=== PATIENT | female | born 1980 | race Caucasian/White ===

== ENCOUNTER → 2023-10-20 15:12 | Outpatient (CLI) | payer OTHER, SELFPAY ==
--- NOTE | 2023-10-20 15:15 | DI.MG.S_ITS ---
BILATERAL DIGITAL SCREENING MAMMOGRAM 3D/2D WITH CAD: 10/20/2023 CLINICAL: Routine screening. Family history of breast cancer. No prior exams were available for comparison. There are scattered areas of fibroglandular density in both breasts (category b / 25%-50% glandular tissue). Current study was also evaluated with a Computer Aided Detection (CAD) system. No significant masses, calcifications, or other findings are seen in either breast. IMPRESSION: NEGATIVE There is no mammographic evidence of malignancy. A 1 year screening mammogram is recommended. Based on the Tyrer Cuzick model (a risk assessment model) the patient's lifetime risk is 10.4% and her 10 year risk is 1.5%. According to the ACR, ACS, and NCCN guidelines, an annual breast MRI exam along with mammogram is recommended if the patient's lifetime risk is 20% or greater. This exam was interpreted at Station ID: [id number]. NOTE: For mammograms, a report in lay terms will be sent to the patient. Approximately 15% of breast malignancies will not be visualized mammographically. In the management of a palpable breast mass, a negative mammogram must not discourage biopsy of a clinically suspicious lesion. Electronically Signed By: Moses [email or web address]:10/21/2023 07:10:34 letter sent: Normal Exam ACR BI-RADS Category 1: Negative [id number]
== END ==
PROVIDERS: PCP Student in an Organized Health Care Education/Training Program; Referring Provider Student in an Organized Health Care Education/Training Program; Visit Provider Student in an Organized Health Care Education/Training Program
DX: Z12.31 Encounter for screening mammogram for malignant neoplasm of breast (principal); Z85.3 Personal history of malignant neoplasm of breast; R92.323 Mammographic fibroglandular density, bilateral breasts
CPT/HCPCS: 77063; 77067

== ENCOUNTER 2024-09-23 09:54 | Emergency (ER) | payer OTHER, SELFPAY ==
[2024-09-23 10:11] VITALS: BP 126/83; PULSE 65; RESP 18; TEMP 36.2; O2SAT 100
--- NOTE | 2024-09-23 10:16 | DI.RAD.S_ITS ---
PROCEDURE: XR FOOT LT MIN 3V INDICATIONS: foot pain. TECHNIQUE: 3 views of the foot were acquired. COMPARISON: None. FINDINGS: Bones: No fractures or dislocations. No suspicious bony lesions. Plantar calcaneal enthesophyte. Soft tissues: No tibiotalar joint effusion. Achilles tendon appears normal. IMPRESSION: No acute bony abnormality. Dictated by: Ravi Batista M.D. on 09/23/2024 at 10:28 Approved by: Ravi Batista M.D. on 09/23/2024 at 10:29
--- NOTE | 2024-09-23 11:07 | ED_ITS ---
HPI - Extremity Problem <Halima Alanis PA-C - Last Filed: 09/23/24 14:10> General Chief complaint: Extremity Problem,Nontraumatic Stated complaint: Left foot pain. Time Seen by Provider: 09/23/24 11:07 Source: patient Mode of arrival: Family Vehicle History of Present Illness HPI Narrative: 44-year-old female presents with left lateral dorsal foot pain. She states she was trying to insert her foot in her [employer] bicycle shoe, she felt immediate pain, she denies any twisting, she was doing this while in a seated position and not actually clipped into the bike. She states she has pain with weightbear. Her concern is that she has had a fracture on the contralateral side some years ago and reports it was missed on the initial x-ray. She is denying any numbness or tingling, no treatment tried except ice. She no longer gets menstrual cycles as she has had an endometrial ablation, she is allergic to steroids and NSAIDs. All other systems are reviewed and are negative. Related Data Home Medications Medication Instructions Recorded Confirmed vitamin-ferrous fumarate 1 cap PO QDAY ##0 08/19/17 65 mg iron-folic acid 1 mg capsule (Mynatal) ascorbic acid (vitamin C) 500 mg 500 mg PO QDAY ##0 08/20/17 tablet Previous Rx's Medication Instructions Recorded oxycodone-acetaminophen 5 mg-325 1 - 2 tab PO Q6HP PRN ##20 08/21/17 mg tablet Allergies Allergy/AdvReac Type Severity Reaction Status Date / Time Corticosteroids AdvReac Verified 09/23/24 10:16 (Glucocorticoids) NSAIDS (Non-Steroidal AdvReac Verified 09/23/24 10:16 Anti-Inflamma Review of Systems <Halima Alanis PA-C - Last Filed: 09/23/24 14:10> Review of Systems Narrative: All other systems reviewed and are negative. Patient History <Halima Alanis PA-C - Last Filed: 09/23/24 14:10> Social History Smoking Status: Former smoker Smoking Status: Former smoker tobacco type: cigarettes Exam <Halima Alanis PA-C - Last Filed: 09/23/24 14:10> Initial Vital Signs Initial Vital Signs: Vital Signs Temperature 97.1 F L 09/23/24 10:11 Pulse Rate 65 09/23/24 10:11 Respiratory Rate 18 09/23/24 10:11 Blood Pressure 126/83 09/23/24 10:11 Pulse Oximetry 100 09/23/24 10:11 Oxygen Delivery Method Room Air 09/23/24 10:11 Vital signs reviewed and are normal. Const General: cooperative, healthy appearing, comfortable and well developed Other: Pleasantly conversing, ambulates with full weightbear but a little hesitant at times on the left foot. No guarding. Extrem Left lower extremity: normal to inspection, full ROM, normal capillary refill, ankle Details: normal to inspection and normal ROM; no tenderness, no swelling and edema and foot Details: normal capillary refill, normal to inspection and tenderness (Left dorsal lateral foot over the tarsal bones mainly cuboid and adjacent cuneiform, mild joint line tenderness along the tarsometatarsal joint overlying the 4th and 5th. No guarding, no discoloration no breaks in the skin.); no cyanosis, no edema and joint enlargement noted Other: She demonstrates full active range of motion but pain is reproduced with foot inversion. No issues with passive ROM against resistance of the distal phalanges. Abduction adduction are also intact. Toe walk intact. No issues identified with the heel or Achilles, no issues identified with the lower leg. <DO Josemanuel Brown Last Filed: 09/23/24 18:39> Initial Vital Signs Initial Vital Signs: Vital Signs Temperature 97.1 F L 09/23/24 10:11 Pulse Rate 65 09/23/24 10:11 Respiratory Rate 18 09/23/24 10:11 Blood Pressure 126/83 09/23/24 10:11 Pulse Oximetry 100 09/23/24 10:11 Oxygen Delivery Method Room Air 09/23/24 10:11 Course <Halima Alanis PA-C - Last Filed: 09/23/24 14:10> Orders Ordered: ED Orders 09/23/24 10:16 XR foot LT min 3V Stat Vital Signs Vital signs: Vital Signs - 8 hr 09/23/24 12:20 Pulse Rate 69 Respiratory Rate 16 Blood Pressure 108/72 Pulse Oximetry 100 Oxygen Delivery Method Room Air <DO Josemanuel Brown Last Filed: 09/23/24 18:39> Orders Ordered: ED Orders 09/23/24 10:16 XR foot LT min 3V Stat Vital Signs Vital signs: Vital Signs - 8 hr 09/23/24 12:20 Pulse Rate 69 Respiratory Rate 16 Blood Pressure 108/72 Pulse Oximetry 100 Oxygen Delivery Method Room Air MDM - Extremity (Nontraumatic) <Halima Alanis PA-C - Last Filed: 09/23/24 14:10> Imaging Data Extremity x-ray #1: My Impression: Deferred to radiologist's interpretation below. Radiologist's Impression: PROCEDURE: XR FOOT LT MIN 3V INDICATIONS: foot pain. TECHNIQUE: 3 views of the foot were acquired. COMPARISON: None. FINDINGS: Bones: No fractures or dislocations. No suspicious bony lesions. Plantar calcaneal enthesophyte. Soft tissues: No tibiotalar joint effusion. Achilles tendon appears normal. IMPRESSION: No acute bony abnormality. Dictated by: Ravi Batista M.D. on 09/23/2024 at 10:28 Approved by: Ravi Batista M.D. on 09/23/2024 at 10:29 [facility] Narrative Medical decision making narrative: Her x-rays are negative for fracture, we did discuss possibility of an occult fracture and of course reimaging in a couple of weeks which she can do with her PCP. She is fitted with a walking boot, she feels comfortable, declined crutches, discussed ice and elevation and avoiding re-injury. Keep activity light, seek medical attention if anything changes or worsens. Acetaminophen as needed for pain, we did discuss the use of a contrast bath as well 30-40 seconds in a cold plunge and alternating with a hot plunge. Red flag warning signs reviewed in detail. She states she will follow up with her PCP and declined orthopedic referral. Discharge Plan Departure Patient Disposition: Home Clinical Impression: Acute foot pain Qualifiers: Laterality: left Qualified Code(s): M79.672 - Pain in left foot Instructions: DI for Foot Pain Activity Restrictions/Additional Instructions: I recommend wearing the boot for the next couple of weeks until you follow up with your PCP. I recommend a contrast bath you take a bowl of water fill it with some ice and immerse the entire foot and ankle for about 30-40 seconds remove and then place the foot and a hot plunge repeat this several times for a period of about 10 minutes or so. Try to elevate as much as possible, avoid re- injury or new injury, seek medical attention if you have any worsening pain or any new worrisome symptoms. This could be a ligamentous strain versus tendinitis versus a contusion from the bike shoe at this point your x-rays are negative, sometimes these are repeated in a couple of weeks to see if there is any interval change. Acetaminophen as needed for pain. Prescriptions: No Action vit-iron fum-folic ac [Mynatal] 1 EACH capsule 1 cap PO QDAY Qty: 0 ascorbic acid (vitamin C) 500 MG tablet 500 mg PO QDAY Qty: 0 oxycodone-acetaminophen 5 MG/325 MG tablet 1 - 2 tab PO Q6HP PRNQty: 20 0RF Referrals: ProviderSheldon [Primary Care Provider] - Stand Alone Forms: Patient Portal/API/Survey ED Sign-out <Radha Islas DO - Last Filed: 09/23/24 18:39> Cosign ED Attending Cosignature Attestation: I was immediately available in the department for consultation.
--- NOTE | 2024-09-23 12:17 | PC.NURSE ---
Pt reports sticking foot in [employer] shoe and hurting her left ankle. Pt able to pinpoint pain at left side of foot. No swelling noted. Pulses in tact. Skin intact.
[2024-09-23 12:20] VITALS: BP 108/72; PULSE 69; RESP 16; O2SAT 100
== END 2024-09-23 12:21 | disposition home or self-care (01) ==
PROVIDERS: Emergency Provider Physician Assistant Medical; Family Provider Student in an Organized Health Care Education/Training Program
DX: M79.672 Pain in left foot (principal); Z87.891 Personal history of nicotine dependence
CPT/HCPCS: 73630; 99281; 99283

== ENCOUNTER → 2024-10-28 16:56 | Outpatient (CLI) | payer OTHER, SELFPAY ==
--- NOTE | 2024-10-28 16:57 | DI.MG.S_ITS ---
MM screening mammo BI: 10/28/2024. BI-RADS: 1 CLINICAL: 44-year old female for bilateral screening mammogram. Tyrer-Cuzick lifetime risk of 10.3%. No personal or first-degree family history of breast cancer. Current reported family history of breast cancer: paternal grandmother. PRIOR EXAMS 10/20/2023. MAMMOGRAPHY TECHNIQUE: 2D and 3D (tomosynthesis) digital mammographic views obtained, with additional images as needed for full coverage. Current study was also evaluated with a Computer Aided Detection (CAD) system. DENSITY A. The breasts are almost entirely fatty. MAMMOGRAPHY FINDINGS Bilateral: No suspicious mass, asymmetry, microcalcification, or other abnormality seen. IMPRESSION: * No evidence of malignancy. RECOMMENDATIONS Bilateral * Annual screening mammography. OVERALL ASSESSMENT CATEGORY BI-RADS-1: Negative. The [employer] recommends annual screening mammography beginning at age 40 for women with average risk of breast cancer. ELECTRONICALLY SIGNED: Bianka Blankenship M.D. on 10/31/2024 at 11:36:57 AM PT Interpreting Station ID: [id number]
== END ==
PROVIDERS: Family Provider Student in an Organized Health Care Education/Training Program; Referring Provider Family Medicine; Visit Provider Family Medicine
DX: Z12.31 Encounter for screening mammogram for malignant neoplasm of breast (principal); Z80.3 Family history of malignant neoplasm of breast; R92.313 Mammographic fatty tissue density, bilateral breasts
CPT/HCPCS: 77063; 77067

== ENCOUNTER 2024-11-28 13:45 | Outpatient (RCR) | payer OTHER, SELFPAY ==
--- NOTE | 2024-09-05 18:07 | PT.OIE ---
Current Diagnoses Unspecified urinary incontinence (09/05/24) Visit Care Team Role Provider Type Kristen Guerrero MD Attending Provider Non-Staff Family Provider Primary Care Provider Referring Provider Specialty: Medical Address: [address] [place] [address], [facility] Email: Physical Therapy Initial Evaluation PT-OP-A Visit Information Start: 08/05/24 17:15 Freq: Status: Active Protocol: Document 09/05/24 14:38 LRN (Rec: 09/05/24 18:06 LRN [id number]) Out-Patient Physical Therapy Visit Information Visit Information Visit Type Initial Evaluation Visit Start Time 14:38 Visit Stop Time 15:30 Visit Number 1 Evaluation Information Evaluation Date 09/05/24 Precautions Precautions G2,P3, T2 ( with twins, vaginal births, one still born, the other later). She reports her one living daughter was born via . Gastroc bypass - 09/24/2023, Endometrial ablasion - 06/2022, L thyroidectomy - 08/20/2017, Uterine polypectomies - 2014 PT-OP-B Current Condition Start: 08/05/24 17:15 Freq: Status: Active Protocol: Document 09/05/24 14:38 LRN (Rec: 09/05/24 18:06 LRN [id number]) Current Condition History of Current Condition Onset Date 2018 Current Complaints Urinary leakage with fear of prolapse. History of Current Condition 2019 had w/DA of 11 lbs. Prolapse bladder started for the first time in 2022. Was also overweight and had gastroc bypass in 09/2023. States 3 months later in December , she had a severe prolapse and she manually would push it back in and everything would be fine. She admits at that time she had constipation. States prolapse has happened 2 -3 times previously, but last December was severe because she could feel more falling out/ coming down, stopping at the opening of vaginal canal. States she has been doing Kegels. With an urge she has a couple of minutes to urinate before she is not able to hold her urine. Sometimes leaks with cough or sneeze, crossing legs helps not to leak. Home ex's: [place] bike , free wgts & yoga mats, and walks/hikes. Leaks with lifting something over 20-30# (DA is 6 yo - 50#). Prior Treatments and Tests None. Treatment Goals Patient/Caregiver Goals Pt goals: -To resolve urinary incontinence with stepping up onto a curve, one leg slipping out to side, and running, yoga changing a leg position (leaks underwear, not outerwear). -Not leak with cough or sneeze . 1 out of 8 times. -Have a HEP to be able to resolve the problem. Personal Factors Other Personal Factors That May Effect LBP rated 3-4/10. Inguinal Therapy/Recovery pain occasionally, rand sides at different times. G2,P3, T2 ( with twins, vaginal births, one still born , the other later) . She reports her one living daughter was born via C- section. 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 PT-OP-C Subjective Start: 08/05/24 17:15 Freq: Status: Active Protocol: Document 09/05/24 14:38 LRN (Rec: 09/05/24 18:06 LRN [id number]) Patient Questionnaires Pelvic Pain and Urgency/Frequency Patient Symptom Scale Pelvic Pain Score 9 PT-OP-I Pelvic Floor Start: 08/05/24 17:15 Freq: Status: Active Protocol: Document 09/05/24 14:38 LRN (Rec: 09/05/24 18:06 LRN [id number]) Pelvic Floor Assessment Urine Urinary Symptoms Falling Out Feeling/Heavy Leakage Cause Cough,Exercise,Lifting,Sneeze, Urge Other Leakage Causes Urinary leakage is from small to large. Leak with lift of over 20-30# or more (leaks w/lift of 50# DA) Sometimes leaks with cough. Leaks with running. Leaks Per Day 3x/week leakage Nocturia Sometimes 1x/night Pads Used In 24 Hours 0 Bowel Other Bowel Symptoms No constipation for last 3 months due to use of probiotics, and resolution of bypass surgery. Bowel Movement Frequency 1x/day [place] Stool Chart Comments Type 4-5 Prolapse Cystocele Grade 3 Prolapse Comments In supine: Bladder has dropped into 1/2 of vaginal canal, uterus not palpated. Perineal Descent Resting Absent Bearing Absent Contraction Ability Voluntary Contraction Weak Manual Muscle Testing Left 2 Manual Muscle Testing Right 2 Manual Muscle Testing Anterior 1 Manual Muscle Testing Posterior 2 Muscle Endurance (Seconds) 8 Number of Quick Contractions In 10 1 Seconds Comments Pelvic Floor Comments Dry & Light pink PF tissues. PT-OP-J Posture/Palpation/Skin Start: 08/05/24 17:15 Freq: Status: Active Protocol: Document 09/05/24 14:38 LRN (Rec: 09/05/24 18:06 LRN [id number]) Posture Evaluation Position Standing Pelvis Posture Anteriorly Tilted Ankle/Foot Posture (R) Calcaneal Inversion Comments Posture Comments Flattened upper thoracic spine . Sacrum L rotated (fwd at R at Sacral sulcus and YESENIA). PT-OP-K Range of Motion Start: 08/05/24 17:15 Freq: Status: Active Protocol: Document 09/05/24 14:38 LRN (Rec: 09/05/24 18:06 LRN [id number]) Lumbar Spine Range of Motion Lumbar Spine Active Degrees Testing Position Standing Flexion 120 Extension 25 Rotation Left 25 Rotation Right 30 Lateral Flexion Left 20 Lateral Flexion Right 18 Hip Goniometric Range of Motion Hip Right Passive Testing Position Supine Internal Rotation 30 External Rotation 85 Left Passive Testing Position Supine Internal Rotation 28 External Rotation 85 PT-OP-M Strength Start: 08/05/24 17:15 Freq: Status: Active Protocol: Document 09/05/24 14:38 LRN (Rec: 09/05/24 18:06 LRN [id number]) Trunk Strength Trunk Manual Muscle Testing Core Stabilization Loss of rotational stability with MMT of LE's. Hip Strength Hip Manual Muscle Testing Right Flexion (L2) 3+ Fair+ Extension (S1) 4+ Good+ Comments Strength is 5/5 except as indicated above. Left Flexion (L2) 3+ Fair+ Extension (S1) 4 Good External Rotation 4 Good Comments Strength is 5/5 except as indicated above. PT-OP-Q Treatments Start: 08/05/24 17:15 Freq: Status: Active Protocol: Document 09/05/24 14:38 LRN (Rec: 09/05/24 18:06 LRN [id number]) Self-Care/Home Management Treatment Education Other Education Discussed results of evaluation, goals, treatment, and plan of care (POC) with pt , discussed attendance/cx/dns policy; pt agreeable to evaluation, goals, treatment, attendance/cx/dns policy and POC. Discussed and educated pt in specifics for completion of in use of Bladder Diary and I/S in tracking for 1 week. Activities Self-Care/Home Management Activities Issued & reviewed HEP: Tommy ex's and discussed exercise of Quick Flicks, Long Holds and Aggravators (sneeze, lifting 50#, cough). PT-OP-T Assessment and Plan Start: 08/05/24 17:15 Freq: Status: Active Protocol: Document 09/05/24 14:38 LRN (Rec: 09/05/24 18:06 LRN [id number]) Physical Therapy Assessment Rehab Potential Rehabilitation Potential Good Evaluation Complexity Number of Personal Factors/Comorbidities 3 or More Number of Body Systems Impaired 4 or More Clinical Presentation at Evaluation Evolving Impairments Impairments Activity Tolerance,Pain, Posture,ROM,Soft Tissue Mobility,Strength,Transfers Goals Three Impairment Urinary leakage due to decr'd hip mobility (IR) & PF strength/endurance Short Term Goal (STG) Pt will be educated and show ability to remain continent in presence of a strong urge. STG Duration 10/20/24 Refrigeration Brazer/Solderer Goal (LTG) Pt will be urinary continent when stepping up onto a curve, and performing yoga (changing a leg position), or if a leg slips out to the side, and running.. LTG Duration 12/02/24 Two Impairment Stress urinary incontinence with cough/sneeze. Short Term Goal (STG) Pt will be able to demonstrate postural and performance modification for coughing and postural modification with sneezing to eliminate urinary leakage. Refrigeration Brazer/Solderer Goal (LTG) Pt will not have urinary leakage with a cough or sneeze , 1 out of 8 times. LTG Duration 12/02/24 One Impairment Pt lacks an independent self care HEP. Short Term Goal (STG) Pt will be educated and able to demonstrate transfers to lessen core abdominal pressure and educated in mgmt with exercise (running, yoga). Refrigeration Brazer/Solderer Goal (LTG) Pt will be independent in a self care HEP for PF strengthening, hip mobility ( IR) ROM, and trunk L>R rot to progress the pt towards remaining urinary continent. LTG Duration 12/02/24 Assessment Summary Assessment Pt is a 44 yo female who presents with stress urinary incontinence after her last child in 2018 and severe prolapse noted in 2022. The pt is quite mobile in her low back, but has mobility restriction in her hips with internal rotation. The pt has a history of lower abdominal surgeries and other comorbidities (LBP, rand inguinal pain) that will probably result in prolonging of her rehabilitation. The pt will benefit from skilled physical therapy to work towards achieving her above stated goals. The pt will benefit from skilled physical therapy to work towards achieving the above stated goals. Physical Therapy Plan Frequency and Duration Frequency of Treatment 1x/Week Duration of treatment (weeks) 12 Plan of Care Start Date 09/05/24 Plan of Care End Date 12/02/24 Therapeutic Interventions Therapeutic Interventions Home Exercise Program,Joint Mobilizations,Manual Therapy, Neuromuscular Re-education, Self-Care/Home Management,Soft Tissue Mobilization,Taping, Therapeutic Activities, Therapeutic Exercises Modalities Biofeedback,Cold Pack/Ice Massage Next Visit Focus/Plan Next Note Type Treatment Note Next Visit Plan Next: Review bladder/bowel diary, pt education in bladder retraining with urge deference technique, PF assessment and HM assessment. proper Kegel and kegels on wedge without use of substitute muscles, core pressure management with transfers and exercise ( discuss jogging), assess deep breathing, and coordinated breathing with transfers. Ther Ex: PF/core rot/hip ( flex, ext, ER) strengthening, improve hip IR ROM and normalize trunk rot mobility. Educate/discuss water intake, proper sit to stand, and core/ PF stabilization for proper abdominal pressure system, STM of abdomen (and urachus) & bladder mobility. POC: Pt education, Manual therapy. Biofeedback with vaginal sensor for PF >< awareness and strengthening, Therapeutic Exercises, Therapeutic Activities, Neuromuscular Reeducation.
--- NOTE | 2024-09-05 18:10 | PT.OPPOC ---
Physical, Occupational & Speech Therapy At [facility] Current Diagnoses Unspecified urinary incontinence (09/05/24) Visit Care Team Role Provider Type Kristen Guerrero MD Attending Provider Non-Staff Family Provider Primary Care Provider Referring Provider Specialty: Medical Address: [address] [place] [address], [id number] Email: Plan Of Care PT-OP-B Current Condition Start: 08/05/24 17:15 Freq: Status: Active Protocol: Document 09/05/24 14:38 LRN (Rec: 09/05/24 18:06 LRN [id number]) Current Condition History of Current Condition Onset Date 2018 Current Complaints Urinary leakage with fear of prolapse. History of Current Condition 2019 had w/DA of 11 lbs. Prolapse bladder started for the first time in 2022. Was also overweight and had gastroc bypass in 09/2023. States 3 months later in December , she had a severe prolapse and she manually would push it back in and everything would be fine. She admits at that time she had constipation. States prolapse has happened 2 -3 times previously, but last December was severe because she could feel more falling out/ coming down, stopping at the opening of vaginal canal. States she has been doing Kegels. With an urge she has a couple of minutes to urinate before she is not able to hold her urine. Sometimes leaks with cough or sneeze, crossing legs helps not to leak. Home ex's: [place] bike , free wgts & yoga mats, and walks/hikes. Leaks with lifting something over 20-30# (DA is 6 yo - 50#). Prior Treatments and Tests None. Treatment Goals Patient/Caregiver Goals Pt goals: -To resolve urinary incontinence with stepping up onto a curve, one leg slipping out to side, and running, yoga changing a leg position (leaks underwear, not outerwear). -Not leak with cough or sneeze . 1 out of 8 times. -Have a HEP to be able to resolve the problem. Personal Factors Other Personal Factors That May Effect LBP rated 3-4/10. Inguinal Therapy/Recovery pain occasionally, rand sides at different times. G2,P3, T2 ( with twins, vaginal births, one still born , the other later) . She reports her one living daughter was born via C- section. 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 PT-OP-T Assessment and Plan Start: 08/05/24 17:15 Freq: Status: Active Protocol: Document 09/05/24 14:38 LRN (Rec: 09/05/24 18:06 LRN [id number]) Physical Therapy Assessment Rehab Potential Rehabilitation Potential Good Evaluation Complexity Number of Personal Factors/Comorbidities 3 or More Number of Body Systems Impaired 4 or More Clinical Presentation at Evaluation Evolving Impairments Impairments Activity Tolerance,Pain, Posture,ROM,Soft Tissue Mobility,Strength,Transfers Goals Three Impairment Urinary leakage due to decr'd hip mobility (IR) & PF strength/endurance Short Term Goal (STG) Pt will be educated and show ability to remain continent in presence of a strong urge. STG Duration 10/20/24 Insurance Professional Goal (LTG) Pt will be urinary continent when stepping up onto a curve, and performing yoga (changing a leg position), or if a leg slips out to the side, and running.. LTG Duration 12/02/24 Two Impairment Stress urinary incontinence with cough/sneeze. Short Term Goal (STG) Pt will be able to demonstrate postural and performance modification for coughing and postural modification with sneezing to eliminate urinary leakage. Insurance Professional Goal (LTG) Pt will not have urinary leakage with a cough or sneeze , 1 out of 8 times. LTG Duration 12/02/24 One Impairment Pt lacks an independent self care HEP. Short Term Goal (STG) Pt will be educated and able to demonstrate transfers to lessen core abdominal pressure and educated in mgmt with exercise (running, yoga). Insurance Professional Goal (LTG) Pt will be independent in a self care HEP for PF strengthening, hip mobility ( IR) ROM, and trunk L>R rot to progress the pt towards remaining urinary continent. LTG Duration 12/02/24 Assessment Summary Assessment Pt is a 44 yo female who presents with stress urinary incontinence after her last child in 2018 and severe prolapse noted in 2022. The pt is quite mobile in her low back, but has mobility restriction in her hips with internal rotation. The pt has a history of lower abdominal surgeries and other comorbidities (LBP, rand inguinal pain) that will probably result in prolonging of her rehabilitation. The pt will benefit from skilled physical therapy to work towards achieving her above stated goals. The pt will benefit from skilled physical therapy to work towards achieving the above stated goals. Physical Therapy Plan Frequency and Duration Frequency of Treatment 1x/Week Duration of treatment (weeks) 12 Plan of Care Start Date 09/05/24 Plan of Care End Date 12/02/24 Therapeutic Interventions Therapeutic Interventions Home Exercise Program,Joint Mobilizations,Manual Therapy, Neuromuscular Re-education, Self-Care/Home Management,Soft Tissue Mobilization,Taping, Therapeutic Activities, Therapeutic Exercises Modalities Biofeedback,Cold Pack/Ice Massage Next Visit Focus/Plan Next Note Type Treatment Note Next Visit Plan Next: Review bladder/bowel diary, pt education in bladder retraining with urge deference technique, PF assessment and HM assessment. proper Kegel and kegels on wedge without use of substitute muscles, core pressure management with transfers and exercise ( discuss jogging), assess deep breathing, and coordinated breathing with transfers. Ther Ex: PF/core rot/hip ( flex, ext, ER) strengthening, improve hip IR ROM and normalize trunk rot mobility. Educate/discuss water intake, proper sit to stand, and core/ PF stabilization for proper abdominal pressure system, STM of abdomen (and urachus) & bladder mobility. POC: Pt education, Manual therapy. Biofeedback with vaginal sensor for PF >< awareness and strengthening, Therapeutic Exercises, Therapeutic Activities, Neuromuscular Reeducation. Plan of Care Dates Plan of Care Start Date 09/05/24 Plan of Care End Date 12/02/24 Electronically Signed by: Bre Burciaga, PT 09/05/24 1487 If you are in agreement with this Plan of Care, please return a signed and dated copy. I have reviewed this Plan of Care and certify that the skilled therapy services above are required to meet the patient?s needs. Physician Signature Date Printed Name and Credentials Clinical Instructor Signature Printed Name and Credentials
--- NOTE | 2024-09-12 15:48 | PT.OTN ---
Current Diagnoses Unspecified urinary incontinence (09/12/24) Physical Therapy Treatment Note PT-OP-A Visit Information Start: 08/05/24 17:15 Freq: Status: Active Protocol: Document 09/12/24 14:32 LRN (Rec: 09/12/24 15:48 LRN [id number]) Out-Patient Physical Therapy Visit Information Visit Information Visit Type Initial Evaluation Visit Start Time 14:32 Visit Stop Time 15:10 Visit Number 2 Evaluation Information Evaluation Date 09/05/24 Precautions Precautions G2,P3, T2 ( with twins, vaginal births, one still born, the other later). She reports her one living daughter was born via . 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 History of Current Condition 2019 had w/DA of 11 lbs. Prolapse bladder started for the first time in 2022. Was also overweight and had gastroc bypass in 09/2023. States 3 months later in December , she had a severe prolapse and she manually would push it back in and everything would be fine. She admits at that time she had constipation. States prolapse has happened 2 -3 times previously, but last December was severe because she could feel more falling out/ coming down, stopping at the opening of vaginal canal. States she has been doing Kegels. With an urge she has a couple of minutes to urinate before she is not able to hold her urine. Sometimes leaks with cough or sneeze, crossing legs helps not to leak. Home ex's: [place] bike , free wgts & yoga mats, and walks/hikes. Leaks with lifting something over 20-30# (DA is 6 yo - 50#). Prior Treatments and Tests None. Treatment Goals Patient/Caregiver Goals Pt goals: -To resolve urinary incontinence with stepping up onto a curve, one leg slipping out to side, and running, yoga changing a leg position (leaks underwear, not outerwear). -Not leak with cough or sneeze . 1 out of 8 times. -Have a HEP to be able to resolve the problem. Personal Factors Other Personal Factors That May Effect LBP rated 3-4/10. Inguinal Therapy/Recovery pain occasionally, rand sides at different times. G2,P3, T2 ( with twins, vaginal births, one still born , the other later) . She reports her one living daughter was born via C- section. 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 PT-OP-C Subjective Start: 08/05/24 17:15 Freq: Status: Active Protocol: Document 09/12/24 14:32 LRN (Rec: 09/12/24 15:48 LRN [id number]) OP-PT Subjective Patient Comments Patient Comments Did bladder diary and has been doing ex's. Did [place] workout on [employer] [place]. Pt states 1-2x/day BMs. Fluid intake when hiking 138 oz + 16 oz soda. PT-OP-I Pelvic Floor Start: 08/05/24 17:15 Freq: Status: Active Protocol: Document 09/05/24 14:38 LRN (Rec: 09/05/24 18:06 LRN [id number]) Pelvic Floor Assessment Urine Urinary Symptoms Falling Out Feeling/Heavy Leakage Cause Cough,Exercise,Lifting,Sneeze, Urge Other Leakage Causes Urinary leakage is from small to large. Leak with lift of over 20-30# or more (leaks w/lift of 50# DA) Sometimes leaks with cough. Leaks with running. Leaks Per Day 3x/week leakage Nocturia Sometimes 1x/night Pads Used In 24 Hours 0 Bowel Other Bowel Symptoms No constipation for last 3 months due to use of probiotics, and resolution of bypass surgery. Bowel Movement Frequency 1x/day [place] Stool Chart Comments Type 4-5 Prolapse Cystocele Grade 3 Prolapse Comments In supine: Bladder has dropped into 1/2 of vaginal canal, uterus not palpated. Perineal Descent Resting Absent Bearing Absent Contraction Ability Voluntary Contraction Weak Manual Muscle Testing Left 2 Manual Muscle Testing Right 2 Manual Muscle Testing Anterior 1 Manual Muscle Testing Posterior 2 Muscle Endurance (Seconds) 8 Number of Quick Contractions In 10 1 Seconds Comments Pelvic Floor Comments Dry & Light pink PF tissues. PT-OP-J Posture/Palpation/Skin Start: 08/05/24 17:15 Freq: Status: Active Protocol: Document 09/05/24 14:38 LRN (Rec: 09/05/24 18:06 LRN [id number]) Posture Evaluation Position Standing Pelvis Posture Anteriorly Tilted Ankle/Foot Posture (R) Calcaneal Inversion Comments Posture Comments Flattened upper thoracic spine . Sacrum L rotated (fwd at R at Sacral sulcus and YESENIA). PT-OP-K Range of Motion Start: 08/05/24 17:15 Freq: Status: Active Protocol: Document 09/05/24 14:38 LRN (Rec: 09/05/24 18:06 LRN [id number]) Lumbar Spine Range of Motion Lumbar Spine Active Degrees Testing Position Standing Flexion 120 Extension 25 Rotation Left 25 Rotation Right 30 Lateral Flexion Left 20 Lateral Flexion Right 18 Hip Goniometric Range of Motion Hip Right Passive Testing Position Supine Internal Rotation 30 External Rotation 85 Left Passive Testing Position Supine Internal Rotation 28 External Rotation 85 PT-OP-M Strength Start: 08/05/24 17:15 Freq: Status: Active Protocol: Document 09/05/24 14:38 LRN (Rec: 09/05/24 18:06 LRN [id number]) Trunk Strength Trunk Manual Muscle Testing Core Stabilization Loss of rotational stability with MMT of LE's. Hip Strength Hip Manual Muscle Testing Right Flexion (L2) 3+ Fair+ Extension (S1) 4+ Good+ Comments Strength is 5/5 except as indicated above. Left Flexion (L2) 3+ Fair+ Extension (S1) 4 Good External Rotation 4 Good Comments Strength is 5/5 except as indicated above. PT-OP-Q Treatments Start: 08/05/24 17:15 Freq: Status: Active Protocol: Document 09/12/24 14:32 LRN (Rec: 09/12/24 15:48 LRN [id number]) Therapeutic Exercises Supine Exercises Long Hold Kegels Reps/Minutes 10 SH/10 SR x 10 Comments Cued to breath with ex, during rest move hips ER/IR Quick Kegels Reps/Minutes 1-2 SH/4 SR x 10 Comments Cued to count rest time Self-Care/Home Management Treatment Education Other Education Reviewed Bladder dairy and educated/discussed pt norms for fluid intake (AM/PM), urinary voiding frequency, & nighttime voiding frequency, times between voids and voiding times, types of intake fluids, bladder irritants, bowel movement frequency. Reviewed doing kegels quick and long holds. Pt education and discussion of urge deference technique and briefly discussed bladder retraining. Reviewed and discussed Foods & Beverages Bladder Diet and discussed bladder irritant foods, and those may or may not be bladder irritants. Discussed most notable irritants (coffee, alcholoic beverages, carbonated beverages, sugary drinks. Activities Self-Care/Home Management Activities Issued handout for: Bladder retraining (urge deference technique) and Foods & Beverages Bladder Diet ( Bladder irritants. PT-OP-T Assessment and Plan Start: 08/05/24 17:15 Freq: Status: Active Protocol: Document 09/12/24 14:32 LRN (Rec: 09/12/24 15:48 LRN [id number]) Physical Therapy Assessment Goals Three Impairment Urinary leakage due to decr'd hip mobility (IR) & PF strength/endurance Short Term Goal (STG) Pt will be educated and show ability to remain continent in presence of a strong urge. 09/12/24: Pt educated in urge deference technique. STG Duration 10/20/24 progressed 09/12/24 Prison Goal (LTG) Pt will be urinary continent when stepping up onto a curve, and performing yoga (changing a leg position), or if a leg slips out to the side, and running.. LTG Duration 12/02/24 Two Impairment Stress urinary incontinence with cough/sneeze. Short Term Goal (STG) Pt will be able to demonstrate postural and performance modification for coughing and postural modification with sneezing to eliminate urinary leakage. Freight Engineer Goal (LTG) Pt will not have urinary leakage with a cough or sneeze , 1 out of 8 times. LTG Duration 12/02/24 One Impairment Pt lacks an independent self care HEP. Short Term Goal (STG) Pt will be educated and able to demonstrate transfers to lessen core abdominal pressure and educated in mgmt with exercise (running, yoga). Prison Goal (LTG) Pt will be independent in a self care HEP for PF strengthening, hip mobility ( IR) ROM, and trunk L>R rot to progress the pt towards remaining urinary continent. 09/12/24: HEP: Kegels (long, quick), aggrevators. LTG Duration 12/02/24 progressed 09/12/24 Assessment Summary Assessment Pt is a 44 yo female w/FRANNY after of her last child in 1018, severe prolapse in 2022, mobility restriction in her hips with internal rotation; pt hx of lower abdominal surgeries, comorbidities of LBP, rand inguinal pain. Today, pt shows per bladder dairy that her voiding norm is probably every 2 hrs except when hiking , voiding was every hour after the hike. She occasionally gets up 1x/night. Pt was receptive to education on urge deference technique and bladder irritants. Physical Therapy Plan Frequency and Duration Frequency of Treatment 1x/Week Duration of treatment (weeks) 12 Plan of Care Start Date 09/05/24 Plan of Care End Date 12/02/24 Next Visit Focus/Plan Next Note Type Treatment Note Next Visit Plan Next: Assess deep breathing ability and teach if needed. PF assessment and HM assessment, proper Kegel and kegels on wedge without use of substitute muscles. Educate: Core pressure management with transfers and exercise (discuss jogging), and coordinated breathing with transfers. Educate/discuss proper sit to stand Ther Ex: PF/core rot/hip ( flex, ext, ER) strengthening, improve hip IR ROM and normalize trunk rot mobility, and core/PF stabilization for proper abdominal pressure system. Manual: STM of abdomen (and urachus) & bladder mobility. POC: Pt education, Manual therapy. Biofeedback with vaginal sensor for PF >< awareness and strengthening, Therapeutic Exercises, Therapeutic Activities, Neuromuscular Reeducation.
--- NOTE | 2024-09-19 16:02 | PT.OTN ---
Current Diagnoses Unspecified urinary incontinence (09/19/24) Physical Therapy Treatment Note PT-OP-A Visit Information Start: 08/05/24 17:15 Freq: Status: Active Protocol: Document 09/19/24 14:36 LRN (Rec: 09/19/24 15:56 LRN [id number]) Out-Patient Physical Therapy Visit Information Visit Information Visit Type Progress Note Visit Start Time 14:36 Visit Stop Time 15:20 Visit Number 3 Evaluation Information Evaluation Date 09/05/24 Precautions Precautions G2,P3, T2 ( with twins, vaginal births, one still born, the other later). She reports her one living daughter was born via . 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 History of Current Condition 2019 had w/DA of 11 lbs. Prolapse bladder started for the first time in 2022. Was also overweight and had gastroc bypass in 09/2023. States 3 months later in December , she had a severe prolapse and she manually would push it back in and everything would be fine. She admits at that time she had constipation. States prolapse has happened 2 -3 times previously, but last December was severe because she could feel more falling out/ coming down, stopping at the opening of vaginal canal. States she has been doing Kegels. With an urge she has a couple of minutes to urinate before she is not able to hold her urine. Sometimes leaks with cough or sneeze, crossing legs helps not to leak. Home ex's: [place] bike , free wgts & yoga mats, and walks/hikes. Leaks with lifting something over 20-30# (DA is 6 yo - 50#). Prior Treatments and Tests None. Treatment Goals Patient/Caregiver Goals Pt goals: -To resolve urinary incontinence with stepping up onto a curve, one leg slipping out to side, and running, yoga changing a leg position (leaks underwear, not outerwear). -Not leak with cough or sneeze . 1 out of 8 times. -Have a HEP to be able to resolve the problem. Personal Factors Other Personal Factors That May Effect LBP rated 3-4/10. Inguinal Therapy/Recovery pain occasionally, rand sides at different times. G2,P3, T2 ( with twins, vaginal births, one still born , the other later) . She reports her one living daughter was born via C- section. 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 PT-OP-C Subjective Start: 08/05/24 17:15 Freq: Status: Active Protocol: Document 09/19/24 14:36 LRN (Rec: 09/19/24 15:56 N [id number]) OP-PT Subjective Patient Comments Patient Comments Didn't do hiking because of cold. No leaking no bad urges . PT-OP-I Pelvic Floor Start: 08/05/24 17:15 Freq: Status: Active Protocol: Document 09/19/24 14:36 LRN (Rec: 09/19/24 15:56 LRN [id number]) Pelvic Floor Assessment SEMG (uV) Baseline 0.5 Quick Contraction 5.2 10 Second Contraction 4.2 Recruitment Pattern Good Relaxation Fair Holding Poor/Slow Stability of Hold Poor/Slow SEMG Stability of Rest Fair Comments Pelvic Floor Comments Start Position: Sup, legs on bolster, hands connected across mid abdomen. Resting was with one blip of unknown contraction. 10 reps strength (uV's): avg work 5.2, avg rest 1.8. 20 reps strength (uV's): avg work 1.8, avg rest 1.6. Long Holds: 10 reps strength (uV's): avg work 4.2, avg rest 1.1. 20 reps strength (uV's): not noted. Supine contraction: (uV's): avg work ~6.1, abdominal 0.8. PT-OP-J Posture/Palpation/Skin Start: 08/05/24 17:15 Freq: Status: Active Protocol: Document 09/05/24 14:38 LRN (Rec: 01/20/25 18:06 LRN [id number]) Posture Evaluation Position Standing Pelvis Posture Anteriorly Tilted Ankle/Foot Posture (R) Calcaneal Inversion Comments Posture Comments Flattened upper thoracic spine . Sacrum L rotated (fwd at R at Sacral sulcus and YESENIA). PT-OP-K Range of Motion Start: 08/05/24 17:15 Freq: Status: Active Protocol: Document 09/05/24 14:38 LRN (Rec: 09/05/24 18:06 LRN [id number]) Lumbar Spine Range of Motion Lumbar Spine Active Degrees Testing Position Standing Flexion 120 Extension 25 Rotation Left 25 Rotation Right 30 Lateral Flexion Left 20 Lateral Flexion Right 18 Hip Goniometric Range of Motion Hip Right Passive Testing Position Supine Internal Rotation 30 External Rotation 85 Left Passive Testing Position Supine Internal Rotation 28 External Rotation 85 PT-OP-M Strength Start: 08/05/24 17:15 Freq: Status: Active Protocol: Document 09/05/24 14:38 LRN (Rec: 09/05/24 18:06 LRN [id number]) Trunk Strength Trunk Manual Muscle Testing Core Stabilization Loss of rotational stability with MMT of LE's. Hip Strength Hip Manual Muscle Testing Right Flexion (L2) 3+ Fair+ Extension (S1) 4+ Good+ Comments Strength is 5/5 except as indicated above. Left Flexion (L2) 3+ Fair+ Extension (S1) 4 Good External Rotation 4 Good Comments Strength is 5/5 except as indicated above. PT-OP-Q Treatments Start: 08/05/24 17:15 Freq: Status: Active Protocol: Document 09/19/24 14:36 LRN (Rec: 09/19/24 15:56 LRN [id number]) Therapeutic Exercises Supine Exercises Quick and Long Hold Kegels w/ABdoms Reps/Minutes 9' Comments 6.1 PF, 0.8 ABdom, incr abdom with long hold. Resting Equipment Used Bolster under legs Reps/Minutes 5' Deep Breathing Supine Exercise Name Hand on chest for phy feedback Reps/Minutes 9' Comments Pt able to breath properly if self phys cuing used. Long Hold Kegels Equipment Used Bolster under legs Reps/Minutes 10 SH/10 SR x 20, rest f/b 2x Comments Extra time for isolating contraction to PF Quick Kegels Equipment Used Bolster under legs Reps/Minutes 2 SH/4 SR x 20, rest f/b 5x Comments Extra time for setup for quick contractions and training. Self-Care/Home Management Treatment Activities Self-Care/Home Management Activities Issued HEP handout: Deep breathing. PT-OP-T Assessment and Plan Start: 08/05/24 17:15 Freq: Status: Active Protocol: Document 09/19/24 14:36 LRN (Rec: 09/19/24 15:56 LRN [id number]) Physical Therapy Assessment Rehab Potential Rehabilitation Potential Good Evaluation Complexity Number of Personal Factors/Comorbidities 3 or More Number of Body Systems Impaired 4 or More Clinical Presentation at Evaluation Evolving Impairments Impairments Activity Tolerance,Pain, Posture,ROM,Soft Tissue Mobility,Strength,Transfers Goals Three Impairment Urinary leakage due to decr'd hip mobility (IR) & PF strength/endurance Short Term Goal (STG) Pt will be educated and show ability to remain continent in presence of a strong urge. 09/12/24: Pt educated in urge deference technique. STG Duration 10/20/24 progressed 09/12/24 Member [employer] Goal (LTG) Pt will be urinary continent when stepping up onto a curve, and performing yoga (changing a leg position), or if a leg slips out to the side, and running.. LTG Duration 12/02/24 Two Impairment Stress urinary incontinence with cough/sneeze. Short Term Goal (STG) Pt will be able to demonstrate postural and performance modification for coughing and postural modification with sneezing to eliminate urinary leakage. STG Duration 10/20/24 Intermediate Goal (LTG) Pt will not have urinary leakage with a cough or sneeze , 1 out of 8 times. LTG Duration 12/02/24 One Impairment Pt lacks an independent self care HEP. Short Term Goal (STG) Pt will be educated and able to demonstrate transfers to lessen core abdominal pressure and educated in mgmt with exercise (running, yoga). 09/19/24: HEP handout: Deep breathing. STG Duration 10/13/24 progressed 09/29/24 Member [employer] Goal (LTG) Pt will be independent in a self care HEP for PF strengthening, hip mobility ( IR) ROM, and trunk L>R rot to progress the pt towards remaining urinary continent. 09/12/24: HEP: Kegels (long, quick), aggrevators. LTG Duration 12/02/24 progressed 01/27/25 Assessment Summary Assessment Pt is a 44 yo female w/FRANNY after of her last child in 1018, severe prolapse in 2022, mobility restriction in her hips with internal rotation; pt hx of lower abdominal surgeries, comorbidities of LBP, rand inguinal pain. Today, she demonstrates fair strength of PF quick contractions of 5.2 and weak endurance hold of 4.2 . Supine abdominal tone is 0. 8 with quick contractions and increasing tone with long holding kegels. With the pt's history of lower abdominal surgeries and other comorbidities (LBP, rand inguinal pain) she will probably require prolonging of her rehabilitation. The pt 's short term goals were modified for duration. The pt will benefit from continued skilled physical therapy, working towards achieving her above stated goals. Physical Therapy Plan Frequency and Duration Frequency of Treatment 1x/Week Duration of treatment (weeks) 12 Plan of Care Start Date 09/05/24 Plan of Care End Date 12/02/24 Therapeutic Interventions Therapeutic Interventions Home Exercise Program,Joint Mobilizations,Manual Therapy, Neuromuscular Re-education, Self-Care/Home Management,Soft Tissue Mobilization,Taping, Therapeutic Activities, Therapeutic Exercises Next Visit Focus/Plan Next Note Type Treatment Note Next Visit Plan Next: PF/Abdom assessment ( sit/stand), proper Kegel and kegels on wedge without use of substitute muscles. Educate: Core pressure management with transfers and exercise (discuss jogging), and coordinated breathing with transfers. Educate/discuss proper sit to stand Ther Ex: PF/core rot/hip ( flex, ext, ER) strengthening, improve hip IR ROM and normalize trunk rot mobility, and core/PF stabilization for proper abdominal pressure system. Manual: STM of abdomen (and urachus) & bladder mobility. POC: Pt education, Manual therapy. Biofeedback with vaginal sensor for PF >< awareness and strengthening, Therapeutic Exercises, Therapeutic Activities, Neuromuscular Reeducation.
--- NOTE | 2024-09-19 16:05 | PT.OPPN ---
Current Diagnoses Unspecified urinary incontinence (09/19/24) Physical Therapy Progress Note PT-OP-A Visit Information Start: 08/05/24 17:15 Freq: Status: Active Protocol: Document 09/19/24 14:36 LRN (Rec: 09/19/24 15:56 LRN [id number]) Out-Patient Physical Therapy Visit Information Visit Information Visit Type Progress Note Visit Start Time 14:36 Visit Stop Time 15:20 Visit Number 3 Evaluation Information Evaluation Date 09/05/24 Precautions Precautions G2,P3, T2 ( with twins, vaginal births, one still born, the other later). She reports her one living daughter was born via . 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 History of Current Condition 2019 had w/DA of 11 lbs. Prolapse bladder started for the first time in 2022. Was also overweight and had gastroc bypass in 09/2023. States 3 months later in December , she had a severe prolapse and she manually would push it back in and everything would be fine. She admits at that time she had constipation. States prolapse has happened 2 -3 times previously, but last December was severe because she could feel more falling out/ coming down, stopping at the opening of vaginal canal. States she has been doing Kegels. With an urge she has a couple of minutes to urinate before she is not able to hold her urine. Sometimes leaks with cough or sneeze, crossing legs helps not to leak. Home ex's: [employer] bike , free wgts & yoga mats, and walks/hikes. Leaks with lifting something over 20-30# (DA is 6 yo - 50#). Prior Treatments and Tests None. Treatment Goals Patient/Caregiver Goals Pt goals: -To resolve urinary incontinence with stepping up onto a curve, one leg slipping out to side, and running, yoga changing a leg position (leaks underwear, not outerwear). -Not leak with cough or sneeze . 1 out of 8 times. -Have a HEP to be able to resolve the problem. Personal Factors Other Personal Factors That May Effect LBP rated 3-4/10. Inguinal Therapy/Recovery pain occasionally, rand sides at different times. G2,P3, T2 ( with twins, vaginal births, one still born , the other later) . She reports her one living daughter was born via C- section. 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 PT-OP-C Subjective Start: 08/05/24 17:15 Freq: Status: Active Protocol: Document 09/19/24 14:36 LRN (Rec: 09/19/24 15:56 N [id number]) OP-PT Subjective Patient Comments Patient Comments Didn't do hiking because of cold. No leaking no bad urges . PT-OP-I Pelvic Floor Start: 08/05/24 17:15 Freq: Status: Active Protocol: Document 09/19/24 14:36 LRN (Rec: 09/19/24 15:56 LRN [id number]) Pelvic Floor Assessment SEMG (uV) Baseline 0.5 Quick Contraction 5.2 10 Second Contraction 4.2 Recruitment Pattern Good Relaxation Fair Holding Poor/Slow Stability of Hold Poor/Slow SEMG Stability of Rest Fair Comments Pelvic Floor Comments Start Position: Sup, legs on bolster, hands connected across mid abdomen. Resting was with one blip of unknown contraction. 10 reps strength (uV's): avg work 5.2, avg rest 1.8. 20 reps strength (uV's): avg work 1.8, avg rest 1.6. Long Holds: 10 reps strength (uV's): avg work 4.2, avg rest 1.1. 20 reps strength (uV's): not noted. Supine contraction: (uV's): avg work ~6.1, abdominal 0.8. PT-OP-J Posture/Palpation/Skin Start: 08/05/24 17:15 Freq: Status: Active Protocol: Document 09/05/24 14:38 LRN (Rec: 09/05/24 18:06 LRN [id number]) Posture Evaluation Position Standing Pelvis Posture Anteriorly Tilted Ankle/Foot Posture (R) Calcaneal Inversion Comments Posture Comments Flattened upper thoracic spine . Sacrum L rotated (fwd at R at Sacral sulcus and YESENIA). PT-OP-K Range of Motion Start: 08/05/24 17:15 Freq: Status: Active Protocol: Document 09/05/24 14:38 LRN (Rec: 09/05/24 18:06 LRN [id number]) Lumbar Spine Range of Motion Lumbar Spine Active Degrees Testing Position Standing Flexion 120 Extension 25 Rotation Left 25 Rotation Right 30 Lateral Flexion Left 20 Lateral Flexion Right 18 Hip Goniometric Range of Motion Hip Measured in Degrees Right Passive Testing Position Supine Internal Rotation 30 External Rotation 85 Left Passive Testing Position Supine Internal Rotation 28 External Rotation 85 PT-OP-M Strength Start: 08/05/24 17:15 Freq: Status: Active Protocol: Document 09/05/24 14:38 LRN (Rec: 09/05/24 18:06 LRN [id number]) Trunk Strength Trunk Manual Muscle Testing Core Stabilization Loss of rotational stability with MMT of LE's. Hip Strength Hip Manual Muscle Testing Right Flexion (L2) 3+ Fair+ Extension (S1) 4+ Good+ Comments Strength is 5/5 except as indicated above. Left Flexion (L2) 3+ Fair+ Extension (S1) 4 Good External Rotation 4 Good Comments Strength is 5/5 except as indicated above. PT-OP-T Assessment and Plan Start: 08/05/24 17:15 Freq: Status: Active Protocol: Document 09/19/24 14:36 LRN (Rec: 09/19/24 15:56 LRN [id number]) Physical Therapy Assessment Rehab Potential Rehabilitation Potential Good Evaluation Complexity Number of Personal Factors/Comorbidities 3 or More Number of Body Systems Impaired 4 or More Clinical Presentation at Evaluation Evolving Impairments Impairments Activity Tolerance,Pain, Posture,ROM,Soft Tissue Mobility,Strength,Transfers Goals Three Impairment Urinary leakage due to decr'd hip mobility (IR) & PF strength/endurance Short Term Goal (STG) Pt will be educated and show ability to remain continent in presence of a strong urge. 09/12/24: Pt educated in urge deference technique. STG Duration 10/20/24 progressed 09/12/24 Mcfp Goal (LTG) Pt will be urinary continent when stepping up onto a curve, and performing yoga (changing a leg position), or if a leg slips out to the side, and running.. LTG Duration 12/02/24 Two Impairment Stress urinary incontinence with cough/sneeze. Short Term Goal (STG) Pt will be able to demonstrate postural and performance modification for coughing and postural modification with sneezing to eliminate urinary leakage. STG Duration 10/20/24 Methods Study Analyst Goal (LTG) Pt will not have urinary leakage with a cough or sneeze , 1 out of 8 times. LTG Duration 12/02/24 One Impairment Pt lacks an independent self care HEP. Short Term Goal (STG) Pt will be educated and able to demonstrate transfers to lessen core abdominal pressure and educated in mgmt with exercise (running, yoga). 09/19/24: HEP handout: Deep breathing. STG Duration 10/13/24 progressed 09/29/24 Mcfp Goal (LTG) Pt will be independent in a self care HEP for PF strengthening, hip mobility ( IR) ROM, and trunk L>R rot to progress the pt towards remaining urinary continent. 09/12/24: HEP: Kegels (long, quick), aggrevators. LTG Duration 12/02/24 progressed 09/12/24 Assessment Summary Assessment Pt is a 44 yo female w/FRANNY after of her last child in 1018, severe prolapse in 2022, mobility restriction in her hips with internal rotation; pt hx of lower abdominal surgeries, comorbidities of LBP, rand inguinal pain. Today, she demonstrates fair strength of PF quick contractions of 5.2 and weak endurance hold of 4.2 . Supine abdominal tone is 0. 8 with quick contractions and increasing tone with long holding kegels. With the pt's history of lower abdominal surgeries and other comorbidities (LBP, rand inguinal pain) she will probably require prolonging of her rehabilitation. The pt 's short term goals were modified for duration. The pt will benefit from continued skilled physical therapy, working towards achieving her above stated goals. Physical Therapy Plan Frequency and Duration Frequency of Treatment 1x/Week Duration of treatment (weeks) 12 Plan of Care Start Date 09/05/24 Plan of Care End Date 12/02/24 Therapeutic Interventions Therapeutic Interventions Home Exercise Program,Joint Mobilizations,Manual Therapy, Neuromuscular Re-education, Self-Care/Home Management,Soft Tissue Mobilization,Taping, Therapeutic Activities, Therapeutic Exercises Next Visit Focus/Plan Next Note Type Treatment Note Next Visit Plan Next: PF/Abdom assessment ( sit/stand), proper Kegel and kegels on wedge without use of substitute muscles. Educate: Core pressure management with transfers and exercise (discuss jogging), and coordinated breathing with transfers. Educate/discuss proper sit to stand Ther Ex: PF/core rot/hip ( flex, ext, ER) strengthening, improve hip IR ROM and normalize trunk rot mobility, and core/PF stabilization for proper abdominal pressure system. Manual: STM of abdomen (and urachus) & bladder mobility. POC: Pt education, Manual therapy. Biofeedback with vaginal sensor for PF >< awareness and strengthening, Therapeutic Exercises, Therapeutic Activities, Neuromuscular Reeducation.
--- NOTE | 2024-09-26 13:48 | PT.OTN ---
Current Diagnoses Unspecified urinary incontinence (09/26/24) Physical Therapy Treatment Note PT-OP-A Visit Information Start: 08/05/24 17:15 Freq: Status: Active Protocol: Document 09/26/24 08:18 LRN (Rec: 09/26/24 09:01 LRN [id number]) Out-Patient Physical Therapy Visit Information Visit Information Visit Type Treatment Note Visit Start Time 08:18 Visit Stop Time 08:58 Visit Number 4 Evaluation Information Evaluation Date 09/05/24 Precautions Precautions G2,P3, T2 ( with twins, vaginal births, one still born, the other later). She reports her one living daughter was born via . 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 History of Current Condition 2019 had w/DA of 11 lbs. Prolapse bladder started for the first time in 2022. Was also overweight and had gastroc bypass in 09/2023. States 3 months later in December , she had a severe prolapse and she manually would push it back in and everything would be fine. She admits at that time she had constipation. States prolapse has happened 2 -3 times previously, but last December was severe because she could feel more falling out/ coming down, stopping at the opening of vaginal canal. States she has been doing Kegels. With an urge she has a couple of minutes to urinate before she is not able to hold her urine. Sometimes leaks with cough or sneeze, crossing legs helps not to leak. Home ex's: [place] bike , free wgts & yoga mats, and walks/hikes. Leaks with lifting something over 20-30# (DA is 7 yo - 50#). Prior Treatments and Tests None. Treatment Goals Patient/Caregiver Goals Pt goals: -To resolve urinary incontinence with stepping up onto a curve, one leg slipping out to side, and running, yoga changing a leg position (leaks underwear, not outerwear). -Not leak with cough or sneeze . 1 out of 8 times. -Have a HEP to be able to resolve the problem. Personal Factors Other Personal Factors That May Effect LBP rated 3-4/10. Inguinal Therapy/Recovery pain occasionally, rand sides at different times. G2,P3, T2 ( with twins, vaginal births, one still born , the other later) . She reports her one living daughter was born via C- section. 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 PT-OP-C Subjective Start: 08/05/24 17:15 Freq: Status: Active Protocol: Document 09/26/24 08:18 LRN (Rec: 09/26/24 09:01 LRN [id number]) OP-PT Subjective Patient Comments Patient Comments Working on exercising and breathing. States using the urge deference techinque to get to bathroom. PT-OP-I Pelvic Floor Start: 08/05/24 17:15 Freq: Status: Active Protocol: Document 09/19/24 14:36 LRN (Rec: 09/19/24 15:56 LRN [id number]) Pelvic Floor Assessment SEMG (uV) Baseline 0.5 Quick Contraction 5.2 10 Second Contraction 4.2 Recruitment Pattern Good Relaxation Fair Holding Poor/Slow Stability of Hold Poor/Slow SEMG Stability of Rest Fair Comments Pelvic Floor Comments Start Position: Sup, legs on bolster, hands connected across mid abdomen. Resting was with one blip of unknown contraction. 10 reps strength (uV's): avg work 5.2, avg rest 1.8. 20 reps strength (uV's): avg work 1.8, avg rest 1.6. Long Holds: 10 reps strength (uV's): avg work 4.2, avg rest 1.1. 20 reps strength (uV's): not noted. Supine contraction: (uV's): avg work ~6.1, abdominal 0.8. PT-OP-J Posture/Palpation/Skin Start: 08/05/24 17:15 Freq: Status: Active Protocol: Document 09/05/24 14:38 LRN (Rec: 09/05/24 18:06 LRN [id number]) Posture Evaluation Position Standing Pelvis Posture Anteriorly Tilted Ankle/Foot Posture (R) Calcaneal Inversion Comments Posture Comments Flattened upper thoracic spine . Sacrum L rotated (fwd at R at Sacral sulcus and YESENIA). PT-OP-K Range of Motion Start: 08/05/24 17:15 Freq: Status: Active Protocol: Document 09/05/24 14:38 LRN (Rec: 09/05/24 18:06 LRN [id number]) Lumbar Spine Range of Motion Lumbar Spine Active Degrees Testing Position Standing Flexion 120 Extension 25 Rotation Left 25 Rotation Right 30 Lateral Flexion Left 20 Lateral Flexion Right 18 Hip Goniometric Range of Motion Hip Right Passive Testing Position Supine Internal Rotation 30 External Rotation 85 Left Passive Testing Position Supine Internal Rotation 28 External Rotation 85 PT-OP-M Strength Start: 08/05/24 17:15 Freq: Status: Active Protocol: Document 09/05/24 14:38 LRN (Rec: 09/05/24 18:06 LRN [id number]) Trunk Strength Trunk Manual Muscle Testing Core Stabilization Loss of rotational stability with MMT of LE's. Hip Strength Hip Manual Muscle Testing Right Flexion (L2) 3+ Fair+ Extension (S1) 4+ Good+ Comments Strength is 5/5 except as indicated above. Left Flexion (L2) 3+ Fair+ Extension (S1) 4 Good External Rotation 4 Good Comments Strength is 5/5 except as indicated above. PT-OP-Q Treatments Start: 08/05/24 17:15 Freq: Status: Active Protocol: Document 09/26/24 08:18 LRN (Rec: 09/26/24 09:01 N [id number]) Therapeutic Exercises Supine Exercises Deep Breathing Supine Exercise Name Hand on chest for phy feedback Reps/Minutes 5' Comments Pt breathing is fast, self phys cuing needed Sitting Exercises Deep Breathing Sitting Exercise Name Hand on chest for phy feedback Reps/Minutes 3' Comments Pt breathing is fast, cued to slow 6breath, self phys cuing needed Therapeutic Activity Therapeutic Activity Transfers coordinating with breath Name Sup<>sit<>stand Reps/Minutes 10' Comments V cuing needed throughout transfers. Neuro Re-Education Treatment Other Activities Isolated PF contractions Details Sit & Stand: PF contractions in isolation of abdominals. Reps/Duration 22' Comments Quick Flicks & Long holds. Sit: resting ~1-1.5; Quick Kegel PF ~4.0, Abdom ~2.5; Long Hold Kegel PF ~6.0, Abdom ~3.0. Stand: resting ~3.0-4.6; Quick Kegel PF ~7.5, Abdom ~3. 0; Long Hold Kegel PF ~7.5, Abdom ~3.0. PT-OP-T Assessment and Plan Start: 08/05/24 17:15 Freq: Status: Active Protocol: Document 09/26/24 08:18 LRN (Rec: 09/26/24 09:01 LRN [id number]) Physical Therapy Assessment Goals Three Impairment Urinary leakage due to decr'd hip mobility (IR) & PF strength/endurance Short Term Goal (STG) Pt will be educated and show ability to remain continent in presence of a strong urge. 09/12/24: Pt educated in urge deference technique. 09/26/24 Pt reporting no leakage in presence of strong urge. STG Duration 10/20/24 (09/26/24: MET GOAL ) Skilled Nursing Goal (LTG) Pt will be urinary continent when stepping up onto a curve, and performing yoga (changing a leg position), or if a leg slips out to the side, and running. LTG Duration 12/02/24 Two Impairment Stress urinary incontinence with cough/sneeze. Short Term Goal (STG) Pt will be able to demonstrate postural and performance modification for coughing and postural modification with sneezing to eliminate urinary leakage. STG Duration 10/20/24 Lead Shipper Goal (LTG) Pt will not have urinary leakage with a cough or sneeze , 1 out of 8 times. LTG Duration 12/02/24 One Impairment Pt lacks an independent self care HEP. Short Term Goal (STG) Pt will be educated and able to demonstrate transfers to lessen core abdominal pressure and educated in mgmt with exercise (running, yoga). 09/19/24: HEP handout: Deep breathing. 09/26/24: Pt educated in breathwork with transfers to lessen core pressure. STG Duration 10/13/24 progressed 09/29/24 Skilled Nursing Goal (LTG) Pt will be independent in a self care HEP for PF strengthening, hip mobility ( IR) ROM, and trunk L>R rot to progress the pt towards remaining urinary continent. 09/12/24: HEP: Kegels (long, quick), aggrevators. LTG Duration 12/02/24 progressed 09/12/24 Assessment Summary Assessment 44 yo fem w/FRANNY post- 2019, severe prolapse (2022), rand inguinal pain, dec'd hip mob (IR), LBP & lower abdom surg hx. Today, with quick and endurance hold PF contraction, sitting abdom strength > PF strength except when valeria the PF; standing PF strength > abdom strength, but is not able to hold contraction well as loss of strength may be due to when she breaths; further assessment is needed. Physical Therapy Plan Frequency and Duration Frequency of Treatment 1x/Week Duration of treatment (weeks) 12 Plan of Care Start Date 09/05/24 Plan of Care End Date 12/02/24 Next Visit Focus/Plan Next Note Type Treatment Note Next Visit Plan Next: Educate: Core pressure management with transfers and exercise (discuss jogging) of coordinated breathing with transfers. Educate/discuss proper sit to stand with hip hinge & breath. Educate postural and performance modification for coughing and postural modification with sneezing to prevent leakage. Ex/neuro re-ed (start sup): Isolated Kegel and kegels on wedge. Ther Ex: PF/core rot/hip ( flex, ext, ER) strengthening, improve hip IR ROM and normalize trunk rot mobility, and core/PF stabilization for proper abdominal pressure system. Manual: STM of abdomen (and urachus) & bladder mobility. Neuro-kelly/Strengthening: PF/ Abdom: strengthen in sup (sit - incr PF strength needed, stand - stability of PF hold needed). POC: Pt education, Manual therapy. Biofeedback with vaginal sensor for PF >< awareness and strengthening, Therapeutic Exercises, Therapeutic Activities, Neuromuscular Reeducation.
--- NOTE | 2024-10-03 17:30 | PT.OTN ---
Current Diagnoses Unspecified urinary incontinence (10/03/24) Physical Therapy Treatment Note PT-OP-A Visit Information Start: 08/05/24 17:15 Freq: Status: Active Protocol: Document 10/03/24 15:18 LRN (Rec: 10/03/24 16:03 LRN [id number]) Out-Patient Physical Therapy Visit Information Visit Information Visit Type Treatment Note Visit Start Time 15:18 Visit Stop Time 15:58 Visit Number 5 Evaluation Information Evaluation Date 09/05/24 Precautions Precautions G2,P3, T2 ( with twins, vaginal births, one still born, the other later). She reports her one living daughter was born via . Gastroc bypass - 09/24/2023, Endometrial ablasion - 06/2022, L thyroidectomy - 08/20/2017, Uterine polypectomies - 2014 PT-OP-B Current Condition Start: 08/05/24 17:15 Freq: Status: Active Protocol: Document 09/05/24 14:38 LRN (Rec: 09/05/24 18:06 LRN [id number]) Current Condition History of Current Condition Onset Date 2018 Current Complaints Urinary leakage with fear of prolapse. History of Current Condition 2019 had w/DA of 11 lbs. Prolapse bladder started for the first time in 2022. Was also overweight and had gastroc bypass in 09/2023. States 3 months later in December , she had a severe prolapse and she manually would push it back in and everything would be fine. She admits at that time she had constipation. States prolapse has happened 2 -3 times previously, but last December was severe because she could feel more falling out/ coming down, stopping at the opening of vaginal canal. States she has been doing Kegels. With an urge she has a couple of minutes to urinate before she is not able to hold her urine. Sometimes leaks with cough or sneeze, crossing legs helps not to leak. Home ex's: [place] bike , free wgts & yoga mats, and walks/hikes. Leaks with lifting something over 20-30# (DA is 7 yo - 50#). Prior Treatments and Tests None. Treatment Goals Patient/Caregiver Goals Pt goals: -To resolve urinary incontinence with stepping up onto a curve, one leg slipping out to side, and running, yoga changing a leg position (leaks underwear, not outerwear). -Not leak with cough or sneeze . 1 out of 8 times. -Have a HEP to be able to resolve the problem. Personal Factors Other Personal Factors That May Effect LBP rated 3-4/10. Inguinal Therapy/Recovery pain occasionally, rand sides at different times. G2,P3, T2 ( with twins, vaginal births, one still born , the other later) . She reports her one living daughter was born via C- section. 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 PT-OP-C Subjective Start: 08/05/24 17:15 Freq: Status: Active Protocol: Document 10/03/24 15:18 LRN (Rec: 10/03/24 16:03 LRN [id number]) OP-PT Subjective Patient Comments Patient Comments No changes. PT-OP-I Pelvic Floor Start: 08/05/24 17:15 Freq: Status: Active Protocol: Document 09/19/24 14:36 LRN (Rec: 09/19/24 15:56 LRN [id number]) Pelvic Floor Assessment SEMG (uV) Baseline 0.5 Quick Contraction 5.2 10 Second Contraction 4.2 Recruitment Pattern Good Relaxation Fair Holding Poor/Slow Stability of Hold Poor/Slow SEMG Stability of Rest Fair Comments Pelvic Floor Comments Start Position: Sup, legs on bolster, hands connected across mid abdomen. Resting was with one blip of unknown contraction. 10 reps strength (uV's): avg work 5.2, avg rest 1.8. 20 reps strength (uV's): avg work 1.8, avg rest 1.6. Long Holds: 10 reps strength (uV's): avg work 4.2, avg rest 1.1. 20 reps strength (uV's): not noted. Supine contraction: (uV's): avg work ~6.1, abdominal 0.8. PT-OP-J Posture/Palpation/Skin Start: 08/05/24 17:15 Freq: Status: Active Protocol: Document 09/05/24 14:38 LRN (Rec: 09/05/24 18:06 LRN [id number]) Posture Evaluation Position Standing Pelvis Posture Anteriorly Tilted Ankle/Foot Posture (R) Calcaneal Inversion Comments Posture Comments Flattened upper thoracic spine . Sacrum L rotated (fwd at R at Sacral sulcus and YESENIA). PT-OP-K Range of Motion Start: 08/05/24 17:15 Freq: Status: Active Protocol: Document 09/05/24 14:38 LRN (Rec: 09/05/24 18:06 LRN [id number]) Lumbar Spine Range of Motion Lumbar Spine Active Degrees Testing Position Standing Flexion 120 Extension 25 Rotation Left 25 Rotation Right 30 Lateral Flexion Left 20 Lateral Flexion Right 18 Hip Goniometric Range of Motion Hip Right Passive Testing Position Supine Internal Rotation 30 External Rotation 85 Left Passive Testing Position Supine Internal Rotation 28 External Rotation 85 PT-OP-M Strength Start: 08/05/24 17:15 Freq: Status: Active Protocol: Document 09/05/24 14:38 LRN (Rec: 09/05/24 18:06 LRN [id number]) Trunk Strength Trunk Manual Muscle Testing Core Stabilization Loss of rotational stability with MMT of LE's. Hip Strength Hip Manual Muscle Testing Right Flexion (L2) 3+ Fair+ Extension (S1) 4+ Good+ Comments Strength is 5/5 except as indicated above. Left Flexion (L2) 3+ Fair+ Extension (S1) 4 Good External Rotation 4 Good Comments Strength is 5/5 except as indicated above. PT-OP-Q Treatments Start: 08/05/24 17:15 Freq: Status: Active Protocol: Document 10/03/24 15:18 LRN (Rec: 10/03/24 16:03 LRN [id number]) Therapeutic Activity Therapeutic Activity Biking training Name Biking posture training to reduce stress on PF Reps/Minutes 10' Transfers coordinating with breath Name Sup<>sit<>stand Reps/Minutes 13' Comments V cuing needed throughout transfers. Short & Long hold kegels with transfers. (10 SH: sit<>side, or sit>side>back). Neuro Re-Education Treatment Other Activities Isolated PF contractions Details Sit: PF contractions in isolation of abdominals. Reps/Duration 14' Comments Quick Flicks & Long holds. Sit: Resting 2.2 - 4.2 (PF), 1 .8 (Abdom) Quick Kegel PF ~8. 9-12, Abdom ~2.9; Long Hold Kegel PF ~6.0, Abdom ~3.0. Self-Care/Home Management Treatment Activities Self-Care/Home Management Activities Issued & reviewed handout: Transfers with breath & Kegel. PT-OP-T Assessment and Plan Start: 08/05/24 17:15 Freq: Status: Active Protocol: Document 10/03/24 15:18 LRN (Rec: 10/03/24 16:03 LRN [id number]) Physical Therapy Assessment Goals Three Impairment Urinary leakage due to decr'd hip mobility (IR) & PF strength/endurance Short Term Goal (STG) Pt will be educated and show ability to remain continent in presence of a strong urge. 09/12/24: Pt educated in urge deference technique. 09/26/24 Pt reporting no leakage in presence of strong urge. STG Duration 10/20/24 (09/26/24: MET GOAL ) Mcfp Goal (LTG) Pt will be urinary continent when stepping up onto a curve, and performing yoga (changing a leg position), or if a leg slips out to the side, and running. LTG Duration 12/02/24 Two Impairment Stress urinary incontinence with cough/sneeze. Short Term Goal (STG) Pt will be able to demonstrate postural and performance modification for coughing and postural modification with sneezing to eliminate urinary leakage. STG Duration 10/20/24 Supervisor [employer] Goal (LTG) Pt will not have urinary leakage with a cough or sneeze , 1 out of 8 times. LTG Duration 12/02/24 One Impairment Pt lacks an independent self care HEP. Short Term Goal (STG) Pt will be educated and able to demonstrate transfers to lessen core abdominal pressure and educated in mgmt with exercise (running, yoga). 09/19/24: HEP handout: Deep breathing. 09/26/24: Pt educated in breathwork with transfers to lessen core pressure. 10/03/24: Issued & reviewed handout: Transfers with breath & Kegel. I/S pt in kegel with yoga and stress core pressure mgmt with breath during yoga. STG Duration 10/13/24 progressed 10/03/24 (educate in mgmt w/running) Mcfp Goal (LTG) Pt will be independent in a self care HEP for PF strengthening, hip mobility ( IR) ROM, and trunk L>R rot to progress the pt towards remaining urinary continent. 09/12/24: HEP: Kegels (long, quick), aggrevators. LTG Duration 12/02/24 progressed 09/12/24 Assessment Summary Assessment Today, in sitting the pt was able to intermittently reduce her abdominal tension less than her PF tension. Pt was very receptive to education of core pressure mgmt as it applies to transfers and [place] biking. Physical Therapy Plan Frequency and Duration Frequency of Treatment 1x/Week Duration of treatment (weeks) 12 Plan of Care Start Date 09/05/24 Plan of Care End Date 12/02/24 Next Visit Focus/Plan Next Note Type Treatment Note Next Visit Plan Next: Review Core pressure management with transfers and biking exercise. Educate/ discuss proper sit to stand with hip hinge & breath. Educate in postural and performance modification for coughing and postural modification with sneezing to prevent leakage. Ex/neuro re-ed (start sup, then sit): Isolated Kegel and kegels on wedge. Ther Ex: PF/core rot/hip ( flex, ext, ER) strengthening, improve hip IR ROM and normalize trunk rot mobility, and core/PF stabilization for proper abdominal pressure system. Educate/training of pt in core pressure mgmt for jogging. Manual: STM of abdomen (and urachus) & bladder mobility. Neuro-kelly/Strengthening: PF/ Abdom: strengthen in sup (sit - incr PF strength needed, stand - stability of PF hold needed). POC: Pt education, Manual therapy. Biofeedback with vaginal sensor for PF >< awareness and strengthening, Therapeutic Exercises, Therapeutic Activities, Neuromuscular Reeducation.
--- NOTE | 2024-10-10 17:13 | PT.OTN ---
Current Diagnoses Unspecified urinary incontinence (10/10/24) Physical Therapy Treatment Note PT-OP-A Visit Information Start: 08/05/24 17:15 Freq: Status: Active Protocol: Document 10/10/24 15:21 LRN (Rec: 10/10/24 16:04 LRN [id number]) Out-Patient Physical Therapy Visit Information Visit Information Visit Type Treatment Note Visit Start Time 15:21 Visit Stop Time 16:00 Visit Number 6 Evaluation Information Evaluation Date 09/05/24 Precautions Precautions G2,P3, T2 ( with twins, vaginal births, one still born, the other later). She reports her one living daughter was born via . Gastroc bypass - 09/24/2023, Endometrial ablasion - 06/2022, L thyroidectomy - 08/20/2017, Uterine polypectomies - 2014 PT-OP-B Current Condition Start: 08/05/24 17:15 Freq: Status: Active Protocol: Document 09/05/24 14:38 LRN (Rec: 09/05/24 18:06 LRN [id number]) Current Condition History of Current Condition Onset Date 2018 Current Complaints Urinary leakage with fear of prolapse. History of Current Condition 2019 had w/DA of 11 lbs. Prolapse bladder started for the first time in 2022. Was also overweight and had gastroc bypass in 09/2023. States 3 months later in December , she had a severe prolapse and she manually would push it back in and everything would be fine. She admits at that time she had constipation. States prolapse has happened 2 -3 times previously, but last December was severe because she could feel more falling out/ coming down, stopping at the opening of vaginal canal. States she has been doing Kegels. With an urge she has a couple of minutes to urinate before she is not able to hold her urine. Sometimes leaks with cough or sneeze, crossing legs helps not to leak. Home ex's: [place] bike , free wgts & yoga mats, and walks/hikes. Leaks with lifting something over 20-30# (DA is 7 yo - 50#). Prior Treatments and Tests None. Treatment Goals Patient/Caregiver Goals Pt goals: -To resolve urinary incontinence with stepping up onto a curve, one leg slipping out to side, and running, yoga changing a leg position (leaks underwear, not outerwear). -Not leak with cough or sneeze . 1 out of 8 times. -Have a HEP to be able to resolve the problem. Personal Factors Other Personal Factors That May Effect LBP rated 3-4/10. Inguinal Therapy/Recovery pain occasionally, rand sides at different times. G2,P3, T2 ( with twins, vaginal births, one still born , the other later) . She reports her one living daughter was born via C- section. 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 PT-OP-C Subjective Start: 08/05/24 17:15 Freq: Status: Active Protocol: Document 10/10/24 15:21 LRN (Rec: 10/10/24 16:04 LRN [id number]) OP-PT Subjective Patient Comments Patient Comments [place] fullness in vagina internally. Happened after riding [place] and haven't ridden since, but feeling is gone now after doing home ex's . Thinks she was breathing. PT-OP-I Pelvic Floor Start: 08/05/24 17:15 Freq: Status: Active Protocol: Document 09/19/24 14:36 LRN (Rec: 09/19/24 15:56 LRN [id number]) Pelvic Floor Assessment SEMG (uV) Baseline 0.5 Quick Contraction 5.2 10 Second Contraction 4.2 Recruitment Pattern Good Relaxation Fair Holding Poor/Slow Stability of Hold Poor/Slow SEMG Stability of Rest Fair Comments Pelvic Floor Comments Start Position: Sup, legs on bolster, hands connected across mid abdomen. Resting was with one blip of unknown contraction. 10 reps strength (uV's): avg work 5.2, avg rest 1.8. 20 reps strength (uV's): avg work 1.8, avg rest 1.6. Long Holds: 10 reps strength (uV's): avg work 4.2, avg rest 1.1. 20 reps strength (uV's): not noted. Supine contraction: (uV's): avg work ~6.1, abdominal 0.8. PT-OP-J Posture/Palpation/Skin Start: 08/05/24 17:15 Freq: Status: Active Protocol: Document 09/05/24 14:38 LRN (Rec: 09/05/24 18:06 LRN [id number]) Posture Evaluation Position Standing Pelvis Posture Anteriorly Tilted Ankle/Foot Posture (R) Calcaneal Inversion Comments Posture Comments Flattened upper thoracic spine . Sacrum L rotated (fwd at R at Sacral sulcus and YESENIA). PT-OP-K Range of Motion Start: 08/05/24 17:15 Freq: Status: Active Protocol: Document 09/05/24 14:38 LRN (Rec: 09/05/24 18:06 LRN [id number]) Lumbar Spine Range of Motion Lumbar Spine Active Degrees Testing Position Standing Flexion 120 Extension 25 Rotation Left 25 Rotation Right 30 Lateral Flexion Left 20 Lateral Flexion Right 18 Hip Goniometric Range of Motion Hip Right Passive Testing Position Supine Internal Rotation 30 External Rotation 85 Left Passive Testing Position Supine Internal Rotation 28 External Rotation 85 PT-OP-M Strength Start: 08/05/24 17:15 Freq: Status: Active Protocol: Document 09/05/24 14:38 LRN (Rec: 09/05/24 18:06 LRN [id number]) Trunk Strength Trunk Manual Muscle Testing Core Stabilization Loss of rotational stability with MMT of LE's. Hip Strength Hip Manual Muscle Testing Right Flexion (L2) 3+ Fair+ Extension (S1) 4+ Good+ Comments Strength is 5/5 except as indicated above. Left Flexion (L2) 3+ Fair+ Extension (S1) 4 Good External Rotation 4 Good Comments Strength is 5/5 except as indicated above. PT-OP-Q Treatments Start: 08/05/24 17:15 Freq: Status: Active Protocol: Document 10/10/24 15:21 LRN (Rec: 10/10/24 16:04 LRN [id number]) Therapeutic Exercises Supine Exercises Quick & Long Hold Kegels in isolation of abdoms Supine Exercise Name Quick & Long Hold Kegels w/ ball squeeze Equipment Used Plinth - level, Plinth-Wedge w /o & w/Ball. Reps/Minutes 2 SH/3 SR x 10, 10 SH/10-20SR x 10 - 3 sets (level, wedge, wedge w/ball) Deep Breathing Reps/Minutes x 5 Neuro Re-Education Treatment Other Activities Isolated Kegel w/biking mvt (october) Details Sit isolated Kegel from ABdom w/bike mvmt of october Reps/Duration 2' Comments Pt cued to breath through activity and not talk or sing as her ABdom activity increases above PF tone. Isolated PF contractions Details Sit: PF contractions in isolation of abdominals. Reps/Duration 18' Comments Quick Flicks & Long holds. Sit: Resting PF 3.2, Abdom 0.3 . Quick Kegel PF ~8.0, Abdom 0.8; Sit Leaning foward: Resting PF 2.5, Abdom 1.0, Long Hold Kegel PF 9-11.9, Abdom 1.0-4.3 . Abdom tone increases with talking or singing considerably. Sit as marching (like biking) PF 1.4, Abdom 0.8. Self-Care/Home Management Treatment Activities Self-Care/Home Management Activities Shared information on company of [facility] group for possible rental of unit. PT-OP-T Assessment and Plan Start: 08/05/24 17:15 Freq: Status: Active Protocol: Document 10/10/24 15:21 LRN (Rec: 10/10/24 16:04 LRN [id number]) Physical Therapy Assessment Goals Three Impairment Urinary leakage due to decr'd hip mobility (IR) & PF strength/endurance Short Term Goal (STG) Pt will be educated and show ability to remain continent in presence of a strong urge. 09/12/24: Pt educated in urge deference technique. 09/26/24 Pt reporting no leakage in presence of strong urge. STG Duration 10/20/24 (09/26/24: MET GOAL ) Alf Goal (LTG) Pt will be urinary continent when stepping up onto a curve, and performing yoga (changing a leg position), or if a leg slips out to the side, and running. LTG Duration 12/02/24 Two Impairment Stress urinary incontinence with cough/sneeze. Short Term Goal (STG) Pt will be able to demonstrate postural and performance modification for coughing and postural modification with sneezing to eliminate urinary leakage. STG Duration 10/20/24 [employer] Goal (LTG) Pt will not have urinary leakage with a cough or sneeze , 1 out of 8 times. LTG Duration 12/02/24 One Impairment Pt lacks an independent self care HEP. Short Term Goal (STG) Pt will be educated and able to demonstrate transfers to lessen core abdominal pressure and educated in mgmt with exercise (running, yoga). 09/19/24: HEP handout: Deep breathing. 09/26/24: Pt educated in breathwork with transfers to lessen core pressure. 10/03/24: Issued & reviewed handout: Transfers with breath & Kegel. I/S pt in kegel with yoga and stress core pressure mgmt with breath during yoga. STG Duration 10/13/24 progressed 10/03/24 (educate in mgmt w/running) [employer] Goal (LTG) Pt will be independent in a self care HEP for PF strengthening, hip mobility ( IR) ROM, and trunk L>R rot to progress the pt towards remaining urinary continent. 09/12/24: HEP: Kegels (long, quick), aggrevators. LTG Duration 12/02/24 progressed 09/12/24 Assessment Summary Assessment 44 yo fem w/FRANNY post- 2018, severe prolapse (2022), rand inguinal pain, dec'd hip mob (IR), LBP & lower abdom surg hx. Today, pt reports possible symptoms prolapse after biking on [place] while singing for 30 minutes. Pt abdominal tone is higher when sitting in biking position while talking/singing; therefore further PF strengthening is needed (Kegel strength for quick & long hold is between 8-11.9), and pt modifying her ex behaviour to help control prolapse onset . Pt appears to have a good understanding of core pressure management with biking and is now aware of not talking/ breathing during ex to minimize possibility of prolapse. Physical Therapy Plan Frequency and Duration Frequency of Treatment 1x/Week Duration of treatment (weeks) 12 Plan of Care Start Date 09/05/24 Plan of Care End Date 12/02/24 Next Visit Focus/Plan Next Note Type Treatment Note Next Visit Plan Next: Assess response to ex with core pressure management (no talking/singing). Educate /discuss proper sit to stand with hip hinge & breath. Educate in postural and performance modification for coughing and postural modification with sneezing to prevent leakage, and HEP for PF strengthening, hip mobility (IR) ROM, and trunk L>R rot. Ex/neuro re-ed (start sup, then sit): Isolated Kegel and kegels on wedge. Ther Ex: PF/core rot/hip ( flex, ext, ER) strengthening, improve hip IR ROM and normalize trunk rot mobility, and core/PF stabilization for proper abdominal pressure system. Educate/training of pt in core pressure mgmt for jogging. Manual: STM of abdomen (and urachus) & bladder mobility. Neuro-kelly/Strengthening: PF/ Abdom: strengthen in sup (sit - incr PF strength needed, stand - stability of PF hold needed). POC: Pt education, Manual therapy. Biofeedback with vaginal sensor for PF >< awareness and strengthening, Therapeutic Exercises, Therapeutic Activities, Neuromuscular Reeducation.
--- NOTE | 2024-10-31 11:38 | PT.OTN ---
Current Diagnoses Unspecified urinary incontinence (10/31/24) Physical Therapy Treatment Note PT-OP-A Visit Information Start: 08/05/24 17:15 Freq: Status: Active Protocol: Document 10/31/24 18:25 LRN (Rec: 10/31/24 12:41 LRN [id number]) Out-Patient Physical Therapy Visit Information Visit Information Visit Type Treatment Note Visit Start Time 11:39 Visit Stop Time 12:31 Visit Number 7 Evaluation Information Evaluation Date 09/05/24 Precautions Precautions G2,P3, T2 ( with twins, vaginal births, one still born, the other later). She reports her one living daughter was born via . Gastroc bypass - 09/24/2023, Endometrial ablasion - 06/2022, L thyroidectomy - 08/20/2017, Uterine polypectomies - 2014 PT-OP-B Current Condition Start: 08/05/24 17:15 Freq: Status: Active Protocol: Document 09/05/24 14:38 LRN (Rec: 09/05/24 18:06 LRN [id number]) Current Condition History of Current Condition Onset Date 2018 Current Complaints Urinary leakage with fear of prolapse. History of Current Condition 2019 had w/DA of 11 lbs. Prolapse bladder started for the first time in 2022. Was also overweight and had gastroc bypass in 09/2023. States 3 months later in December , she had a severe prolapse and she manually would push it back in and everything would be fine. She admits at that time she had constipation. States prolapse has happened 2 -3 times previously, but last December was severe because she could feel more falling out/ coming down, stopping at the opening of vaginal canal. States she has been doing Kegels. With an urge she has a couple of minutes to urinate before she is not able to hold her urine. Sometimes leaks with cough or sneeze, crossing legs helps not to leak. Home ex's: [place] bike , free wgts & yoga mats, and walks/hikes. Leaks with lifting something over 20-30# (DA is 7 yo - 50#). Prior Treatments and Tests None. Treatment Goals Patient/Caregiver Goals Pt goals: -To resolve urinary incontinence with stepping up onto a curve, one leg slipping out to side, and running, yoga changing a leg position (leaks underwear, not outerwear). -Not leak with cough or sneeze . 1 out of 8 times. -Have a HEP to be able to resolve the problem. Personal Factors Other Personal Factors That May Effect LBP rated 3-4/10. Inguinal Therapy/Recovery pain occasionally, rand sides at different times. G2,P3, T2 ( with twins, vaginal births, one still born , the other later) . She reports her one living daughter was born via C- section. 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 PT-OP-C Subjective Start: 08/05/24 17:15 Freq: Status: Active Protocol: Document 10/31/24 18:25 LRN (Rec: 10/31/24 12:41 LRN [id number]) OP-PT Subjective Patient Comments Patient Comments Wants to do the estim treatment. Coughing and sneezing, not having leakage. After hiking for 4 hrs, used [place] before leaving and once home and an hour later was walking to [place] and leaked. PT-OP-I Pelvic Floor Start: 08/05/24 17:15 Freq: Status: Active Protocol: Document 09/19/24 14:36 LRN (Rec: 09/19/24 15:56 LRN [id number]) Pelvic Floor Assessment SEMG (uV) Baseline 0.5 Quick Contraction 5.2 10 Second Contraction 4.2 Recruitment Pattern Good Relaxation Fair Holding Poor/Slow Stability of Hold Poor/Slow SEMG Stability of Rest Fair Comments Pelvic Floor Comments Start Position: Sup, legs on bolster, hands connected across mid abdomen. Resting was with one blip of unknown contraction. 10 reps strength (uV's): avg work 5.2, avg rest 1.8. 20 reps strength (uV's): avg work 1.8, avg rest 1.6. Long Holds: 10 reps strength (uV's): avg work 4.2, avg rest 1.1. 20 reps strength (uV's): not noted. Supine contraction: (uV's): avg work ~6.1, abdominal 0.8. PT-OP-J Posture/Palpation/Skin Start: 08/05/24 17:15 Freq: Status: Active Protocol: Document 09/05/24 14:38 LRN (Rec: 09/05/24 18:06 LRN [id number]) Posture Evaluation Position Standing Pelvis Posture Anteriorly Tilted Ankle/Foot Posture (R) Calcaneal Inversion Comments Posture Comments Flattened upper thoracic spine . Sacrum L rotated (fwd at R at Sacral sulcus and YESENIA). PT-OP-K Range of Motion Start: 08/05/24 17:15 Freq: Status: Active Protocol: Document 09/05/24 14:38 LRN (Rec: 09/05/24 18:06 LRN [id number]) Lumbar Spine Range of Motion Lumbar Spine Active Degrees Testing Position Standing Flexion 120 Extension 25 Rotation Left 25 Rotation Right 30 Lateral Flexion Left 20 Lateral Flexion Right 18 Hip Goniometric Range of Motion Hip Right Passive Testing Position Supine Internal Rotation 30 External Rotation 85 Left Passive Testing Position Supine Internal Rotation 28 External Rotation 85 PT-OP-M Strength Start: 08/05/24 17:15 Freq: Status: Active Protocol: Document 09/05/24 14:38 LRN (Rec: 09/05/24 18:06 LRN [id number]) Trunk Strength Trunk Manual Muscle Testing Core Stabilization Loss of rotational stability with MMT of LE's. Hip Strength Hip Manual Muscle Testing Right Flexion (L2) 3+ Fair+ Extension (S1) 4+ Good+ Comments Strength is 5/5 except as indicated above. Left Flexion (L2) 3+ Fair+ Extension (S1) 4 Good External Rotation 4 Good Comments Strength is 5/5 except as indicated above. PT-OP-Q Treatments Start: 08/05/24 17:15 Freq: Status: Active Protocol: Document 10/31/24 18:25 LRN (Rec: 10/31/24 12:41 LRN [id number]) Therapeutic Exercises Supine Exercises Lateral Hip Stretch Side bilateral Reps/Minutes 60 SH x 1 each Comments Extra time to determine max mandy stretch Piriformis stretch Supine Exercise Name cross legs KTC, & knee to opp shoulder. Side bilateral Reps/Minutes 60 SH x 1 each Comments Extra time to determine max mandy stretch Sitting Exercises Piriformis stretch Side bilateral Reps/Minutes 60 SH x 1 each Therapeutic Activity Therapeutic Activity Hip Hinging Name Core pressure mgmt w/hip hinging. Reps/Minutes 5' Transfers coordinating with breath Name Sit<>stand w/core pressure mgmt of breath and hip hinging . Reps/Minutes 10' Self-Care/Home Management Treatment Education Other Education Discussion & education in reasons for urinary leakage immediately after urinating, after a long hike. Educated pt in PF anatomy, with visual handout, and anatomy as related to bladder positioning and effect of core pressure. Activities Self-Care/Home Management Activities Issued & reviewed HEP: Supine Piriformis stretch (knee to opp shdr & ankle over knee>KTC ), Lateral hip stretch & sitting Piriformis stretch. PT-OP-R Modalities Start: 08/05/24 17:15 Freq: Status: Active Protocol: Document 10/31/24 18:25 LRN (Rec: 11/10/24 13:50 LRN [id number]) Electric Stimulation Electric Stimulation Pre-Modulated Body Location Pelvic Floor Intensity 18 Cycle 10/10 Patient Position Hooklying Comments Extra time needed for donning of electrode and determining max tolerated intensity for stim. Pt did not tolerate stim at intensity to achieve a PF contraction. Pt I/S to do PF contractions with stim on and relaxation of PF when stim is off. PT-OP-T Assessment and Plan Start: 08/05/24 17:15 Freq: Status: Active Protocol: Document 10/31/24 18:25 LRN (Rec: 10/31/24 12:41 LRN [id number]) Physical Therapy Assessment Goals Three Impairment Urinary leakage due to decr'd hip mobility (IR) & PF strength/endurance Short Term Goal (STG) Pt will be educated and show ability to remain continent in presence of a strong urge. 09/12/24: Pt educated in urge deference technique. 09/26/24 Pt reporting no leakage in presence of strong urge. STG Duration 10/20/24 (09/26/24: MET GOAL ) [employer] Goal (LTG) Pt will be urinary continent when stepping up onto a curve, and performing yoga (changing a leg position), or if a leg slips out to the side, and running. LTG Duration 12/02/24 Two Impairment Stress urinary incontinence with cough/sneeze. Short Term Goal (STG) Pt will be able to demonstrate postural and performance modification for coughing and postural modification with sneezing to eliminate urinary leakage. STG Duration 10/20/24 Stem[employer] Topper Goal (LTG) Pt will not have urinary leakage with a cough or sneeze , 1 out of 8 times. LTG Duration 12/02/24 One Impairment Pt lacks an independent self care HEP. Short Term Goal (STG) Pt will be educated and able to demonstrate transfers to lessen core abdominal pressure and educated in mgmt with exercise (running, yoga). 09/19/24: HEP handout: Deep breathing. 09/26/24: Pt educated in breathwork with transfers to lessen core pressure. 10/03/24: Issued & reviewed handout: Transfers with breath & Kegel. I/S pt in kegel with yoga and stress core pressure mgmt with breath during yoga. STG Duration 10/13/24 progressed 10/03/24 (educate in mgmt w/running) St[employer]pper Goal (LTG) Pt will be independent in a self care HEP for PF strengthening, hip mobility ( IR) ROM, and trunk L>R rot to progress the pt towards remaining urinary continent. 09/12/24: HEP: Kegels (long, quick), aggrevators. LTG Duration 12/02/24 progressed 09/12/24 Assessment Summary Assessment Pt is a 44 yo fem w/FRANNY post- 2019, severe prolapse ( 2022), rand inguinal pain, dec' d hip mob (IR), LBP & lower abdom surg hx. Pt appeared to show good understanding of hip hinging with breath to decrease core pressure. Her PF strength is weakest in supine. Sitting, abdominal tone increases significantly with talking/singing; therefore further PF strengthening is needed. Pt was not able to feel a PF contraction with unattended PF EStim; therefore further PF strengthening is needed with neuro-kelly for training to achieve a proper PF contraction. Physical Therapy Plan Frequency and Duration Frequency of Treatment 1x/Week Duration of treatment (weeks) 12 Plan of Care Start Date 09/05/24 Plan of Care End Date 12/02/24 Next Visit Focus/Plan Next Note Type Treatment Note Next Visit Plan Next: Assess response to ex with core pressure management (no talking/singing). Review hip IR stretches. Educate in postural and performance modification for coughing and postural modification with sneezing to prevent leakage, and HEP for PF strengthening, and trunk L>R rot. Ex/neuro re-ed (start sup, then sit): Isolated Kegel and kegels on wedge. Ther Ex: PF/core rot/hip ( flex, ext, ER) strengthening, monitor for improvement of hip IR ROM, and normalize trunk rot mobility, and core/PF stabilization for proper abdominal pressure system. Educate/training of pt in core pressure mgmt for jogging. Manual: STM of abdomen (and urachus) & bladder mobility. Neuro-kelly/Strengthening: PF/ Abdom: strengthen in sup (sit - incr PF strength needed, stand - stability of PF hold needed). POC: Pt education, Manual therapy. Biofeedback with vaginal sensor for PF >< awareness and strengthening, Therapeutic Exercises, Therapeutic Activities, Neuromuscular Reeducation.
--- NOTE | 2024-11-08 17:08 | PT.OTN ---
Current Diagnoses Unspecified urinary incontinence (11/08/24) Physical Therapy Treatment Note PT-OP-A Visit Information Start: 08/05/24 17:15 Freq: Status: Active Protocol: Document 11/08/24 12:16 LRN (Rec: 11/08/24 13:04 LRN [id number]) Out-Patient Physical Therapy Visit Information Visit Information Visit Type Treatment Note Visit Start Time 12:16 Visit Stop Time 13:01 Visit Number 8 (as of today 12 visits approved) Evaluation Information Evaluation Date 09/05/24 Precautions Precautions G2,P3, T2 ( with twins, vaginal births, one still born, the other later). She reports her one living daughter was born via . 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 History of Current Condition 2019 had w/DA of 11 lbs. Prolapse bladder started for the first time in 2022. Was also overweight and had gastroc bypass in 09/2023. States 3 months later in December , she had a severe prolapse and she manually would push it back in and everything would be fine. She admits at that time she had constipation. States prolapse has happened 2 -3 times previously, but last December was severe because she could feel more falling out/ coming down, stopping at the opening of vaginal canal. States she has been doing Kegels. With an urge she has a couple of minutes to urinate before she is not able to hold her urine. Sometimes leaks with cough or sneeze, crossing legs helps not to leak. Home ex's: [place] bike , free wgts & yoga mats, and walks/hikes. Leaks with lifting something over 20-30# (DA is 7 yo - 50#). Prior Treatments and Tests None. Treatment Goals Patient/Caregiver Goals Pt goals: -To resolve urinary incontinence with stepping up onto a curve, one leg slipping out to side, and running, yoga changing a leg position (leaks underwear, not outerwear). -Not leak with cough or sneeze . 1 out of 8 times. -Have a HEP to be able to resolve the problem. Personal Factors Other Personal Factors That May Effect LBP rated 3-4/10. Inguinal Therapy/Recovery pain occasionally, rand sides at different times. G2,P3, T2 ( with twins, vaginal births, one still born , the other later) . She reports her one living daughter was born via C- section. 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 PT-OP-C Subjective Start: 08/05/24 17:15 Freq: Status: Active Protocol: Document 11/08/24 12:16 LRN (Rec: 11/08/24 13:04 LRN [id number]) OP-PT Subjective Patient Comments Patient Comments Current referral ends 11/16/24. Not leaking stepping off a curve. PT-OP-I Pelvic Floor Start: 08/05/24 17:15 Freq: Status: Active Protocol: Document 09/19/24 14:36 LRN (Rec: 09/19/24 15:56 LRN [id number]) Pelvic Floor Assessment SEMG (uV) Baseline 0.5 Quick Contraction 5.2 10 Second Contraction 4.2 Recruitment Pattern Good Relaxation Fair Holding Poor/Slow Stability of Hold Poor/Slow SEMG Stability of Rest Fair Comments Pelvic Floor Comments Start Position: Sup, legs on bolster, hands connected across mid abdomen. Resting was with one blip of unknown contraction. 10 reps strength (uV's): avg work 5.2, avg rest 1.8. 20 reps strength (uV's): avg work 1.8, avg rest 1.6. Long Holds: 10 reps strength (uV's): avg work 4.2, avg rest 1.1. 20 reps strength (uV's): not noted. Supine contraction: (uV's): avg work ~6.1, abdominal 0.8. PT-OP-J Posture/Palpation/Skin Start: 08/05/24 17:15 Freq: Status: Active Protocol: Document 09/05/24 14:38 LRN (Rec: 09/05/24 18:06 LRN [id number]) Posture Evaluation Position Standing Pelvis Posture Anteriorly Tilted Ankle/Foot Posture (R) Calcaneal Inversion Comments Posture Comments Flattened upper thoracic spine . Sacrum L rotated (fwd at R at Sacral sulcus and YESENIA). PT-OP-K Range of Motion Start: 08/05/24 17:15 Freq: Status: Active Protocol: Document 09/05/24 14:38 LRN (Rec: 09/05/24 18:06 LRN [id number]) Lumbar Spine Range of Motion Lumbar Spine Active Degrees Testing Position Standing Flexion 120 Extension 25 Rotation Left 25 Rotation Right 30 Lateral Flexion Left 20 Lateral Flexion Right 18 Hip Goniometric Range of Motion Hip Right Passive Testing Position Supine Internal Rotation 30 External Rotation 85 Left Passive Testing Position Supine Internal Rotation 28 External Rotation 85 PT-OP-M Strength Start: 08/05/24 17:15 Freq: Status: Active Protocol: Document 09/05/24 14:38 LRN (Rec: 09/05/24 18:06 LRN [id number]) Trunk Strength Trunk Manual Muscle Testing Core Stabilization Loss of rotational stability with MMT of LE's. Hip Strength Hip Manual Muscle Testing Right Flexion (L2) 3+ Fair+ Extension (S1) 4+ Good+ Comments Strength is 5/5 except as indicated above. Left Flexion (L2) 3+ Fair+ Extension (S1) 4 Good External Rotation 4 Good Comments Strength is 5/5 except as indicated above. PT-OP-Q Treatments Start: 08/05/24 17:15 Freq: Status: Active Protocol: Document 11/08/24 12:16 LRN (Rec: 11/08/24 13:04 LRN [id number]) Therapeutic Exercises Supine Exercises Lateral Hip Stretch Side bilateral Reps/Minutes 60 SH x 1 each Comments Extra time to determine max mandy stretch Piriformis stretch Supine Exercise Name cross legs KTC, & knee to opp shoulder. Side bilateral Reps/Minutes 60 SH x 1 each Quick and Long Hold Kegels w/ABdoms Supine Exercise Name On [facility]: Quick & long hold kegels Equipment Used Ball squeeze & TB BKFO Reps/Minutes 2 SH/2 SR x 10, 10 SH x 10 SR. Other Exercises Cough/sneeze training Other Exercise Name Training for light/soft abdomen with cough/sneeze. Reps/Minutes 2' Kegel before cough or sneeze Other Exercise Name Kegel before cough or sneeze. Reps/Minutes 5x each Therapeutic Activity Therapeutic Activity Transfers coordinating with breath Name log roll sup<>sit Reps/Minutes 3' Comments Cued for proper mvmt and breath/kegel with transer. Neuro Re-Education Treatment Other Activities Isolated PF contractions Details Sup & Sit: PF quick & long hold contractions in isolation of abdominals. Reps/Duration 23' Comments Quick Flicks & Long holds. Sup: Quick: PF 2.4 Sit: Quick Kegel: PF ~9.0, Abdom 1.7; Sit: Long Hold Kegel: PF 11.2- >8.9, Abdom 1.5->1.7. Abdom tone increases with talking or singing considerably. PT-OP-T Assessment and Plan Start: 08/05/24 17:15 Freq: Status: Active Protocol: Document 11/08/24 12:16 LRN (Rec: 11/08/24 13:04 LRN [id number]) Physical Therapy Assessment Goals Three Impairment Urinary leakage due to decr'd hip mobility (IR) & PF strength/endurance Short Term Goal (STG) Pt will be educated and show ability to remain continent in presence of a strong urge. 09/12/24: Pt educated in urge deference technique. 09/26/24 Pt reporting no leakage in presence of strong urge. STG Duration 10/20/24 (09/26/24: MET GOAL ) Material Expediter Goal (LTG) Pt will be urinary continent when stepping up onto a curve, and performing yoga (changing a leg position), or if a leg slips out to the side, and running. 11/08/24: Not leaking when stepping off a curve. Hasn't done any yoga yet. LTG Duration 12/02/24 progressing (need asses yoga, leg to side, run) Two Impairment Stress urinary incontinence with cough/sneeze. Short Term Goal (STG) Pt will be able to demonstrate postural and performance modification for coughing and postural modification with sneezing to eliminate urinary leakage. 11/08/24: Pt able to demonstrate in supine performance modification to cough/sneeze to decr core pressure and reduce or eliminate urinary leakage. STG Duration 10/20/24 progressed 11/08/24 (need sitting postural demonstration) Material Expediter Goal (LTG) Pt will not have urinary leakage with a cough or sneeze , 1 out of 8 times. 11/08/24: Not having to sneeze or cough yet. LTG Duration 12/02/24 One Impairment Pt lacks an independent self care HEP. Short Term Goal (STG) Pt will be educated and able to demonstrate transfers to lessen core abdominal pressure and educated in mgmt with exercise (running, yoga). 09/19/24: HEP handout: Deep breathing. 09/26/24: Pt educated in breathwork with transfers to lessen core pressure. 10/03/24: Issued & reviewed handout: Transfers with breath & Kegel. I/S pt in kegel with yoga and stress core pressure mgmt with breath during yoga. STG Duration 10/13/24 progressed 10/03/24 (educate in mgmt w/running) Care Home Goal (LTG) Pt will be independent in a self care HEP for PF strengthening, hip mobility ( IR) ROM, and trunk L>R rot to progress the pt towards remaining urinary continent. 09/12/24: HEP: Kegels (long, quick), aggrevators. 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 Pt did not feel able to tolerate estim strong enough to get an involuntary contraction of PF. Physical Therapy Plan Frequency and Duration Frequency of Treatment 1x/Week Duration of treatment (weeks) 12 Plan of Care Start Date 09/05/24 Plan of Care End Date 12/02/24 Next Visit Focus/Plan Next Note Type Treatment Note Next Visit Plan Next: ?DC (if further time not allowed to complete visits allowed). Assess pt's core pressure management (no talking/singing). Check hip IR/ER mobilty. Issue HEP: trunk L>R rot ex & PF strengthening as appropriate. Train sitting postural modification (anter PT) to reduce risk of leakage w/ modified cough or sneeze. Ex: Isolated Kegel and kegels on wedge. Check leakage with yoga move and basic run education. Ther Ex: PF/core rot/hip ( flex, ext, ER) strengthening, monitor for improvement of hip IR ROM, and normalize trunk rot mobility, and core/PF stabilization for proper abdominal pressure system. Educate/training of pt in core pressure mgmt for jogging. Neuro-kelly/Strengthening: PF/ Abdom: strengthen in sup (sit - incr PF strength needed, stand - stability of PF hold needed). Manual: STM of abdomen (and urachus) & bladder mobility. POC: Pt education, Manual therapy. Biofeedback with vaginal sensor for PF >< awareness and strengthening, Therapeutic Exercises, Therapeutic Activities, Neuromuscular Reeducation.
--- NOTE | 2024-11-14 18:56 | PT.OTN ---
Current Diagnoses Unspecified urinary incontinence (11/14/24) Physical Therapy Treatment Note PT-OP-A Visit Information Start: 08/05/24 17:15 Freq: Status: Active Protocol: Document 11/14/24 13:49 LRN (Rec: 11/14/24 14:31 LRN [id number]) Out-Patient Physical Therapy Visit Information Visit Information Visit Type Progress Note Visit Start Time 13:49 Visit Stop Time 14:29 Visit Number 9 (as of today 12 visits approved) Evaluation Information Evaluation Date 09/05/24 Precautions Precautions G2,P3, T2 ( with twins, vaginal births, one still born, the other later). She reports her one living daughter was born via . Gastroc bypass - 09/24/2023, Endometrial ablasion - 06/2022, L thyroidectomy - 08/20/2017, Uterine polypectomies - 2014 PT-OP-B Current Condition Start: 08/05/24 17:15 Freq: Status: Active Protocol: Document 09/05/24 14:38 LRN (Rec: 09/05/24 18:06 LRN [id number]) Current Condition History of Current Condition Onset Date 2018 Current Complaints Urinary leakage with fear of prolapse. History of Current Condition 2019 had w/DA of 11 lbs. Prolapse bladder started for the first time in 2022. Was also overweight and had gastroc bypass in 09/2023. States 3 months later in December , she had a severe prolapse and she manually would push it back in and everything would be fine. She admits at that time she had constipation. States prolapse has happened 2 -3 times previously, but last December was severe because she could feel more falling out/ coming down, stopping at the opening of vaginal canal. States she has been doing Kegels. With an urge she has a couple of minutes to urinate before she is not able to hold her urine. Sometimes leaks with cough or sneeze, crossing legs helps not to leak. Home ex's: [place] bike , free wgts & yoga mats, and walks/hikes. Leaks with lifting something over 20-30# (DA is 7 yo - 50#). Prior Treatments and Tests None. Treatment Goals Patient/Caregiver Goals Pt goals: -To resolve urinary incontinence with stepping up onto a curve, one leg slipping out to side, and running, yoga changing a leg position (leaks underwear, not outerwear). -Not leak with cough or sneeze . 1 out of 8 times. -Have a HEP to be able to resolve the problem. Personal Factors Other Personal Factors That May Effect LBP rated 3-4/10. Inguinal Therapy/Recovery pain occasionally, rand sides at different times. G2,P3, T2 ( with twins, vaginal births, one still born , the other later) . She reports her one living daughter was born via C- section. 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 PT-OP-C Subjective Start: 08/05/24 17:15 Freq: Status: Active Protocol: Document 11/14/24 13:49 LRN (Rec: 11/14/24 14:31 LRN [id number]) OP-PT Subjective Patient Comments Patient Comments Ordered resistance bands and ball for home ex's. Patient Questionnaires Pelvic Pain and Urgency/Frequency Patient Symptom Scale Pelvic Pain Score 4 PT-OP-I Pelvic Floor Start: 08/05/24 17:15 Freq: Status: Active Protocol: Document 11/14/24 13:49 LRN (Rec: 11/14/24 14:31 LRN [id number]) Pelvic Floor Assessment Prolapse Cystocele Grade 2 Perineal Descent Resting Absent Bearing Absent Contraction Ability Manual Muscle Testing Left 2 Manual Muscle Testing Right 2 Manual Muscle Testing Anterior 2 Manual Muscle Testing Posterior 2 Muscle Endurance (Seconds) 9 Number of Quick Contractions In 10 6 Seconds PT-OP-J Posture/Palpation/Skin Start: 08/05/24 17:15 Freq: Status: Active Protocol: Document 09/05/24 14:38 LRN (Rec: 09/05/24 18:06 LRN [id number]) Posture Evaluation Position Standing Pelvis Posture Anteriorly Tilted Ankle/Foot Posture (R) Calcaneal Inversion Comments Posture Comments Flattened upper thoracic spine . Sacrum L rotated (fwd at R at Sacral sulcus and YESENIA). PT-OP-K Range of Motion Start: 08/05/24 17:15 Freq: Status: Active Protocol: Document 09/05/24 14:38 LRN (Rec: 09/05/24 18:06 LRN [id number]) Lumbar Spine Range of Motion Lumbar Spine Active Degrees Testing Position Standing Flexion 120 Extension 25 Rotation Left 25 Rotation Right 30 Lateral Flexion Left 20 Lateral Flexion Right 18 Hip Goniometric Range of Motion Hip Right Passive Testing Position Supine Internal Rotation 30 External Rotation 85 Left Passive Testing Position Supine Internal Rotation 28 External Rotation 85 PT-OP-M Strength Start: 08/05/24 17:15 Freq: Status: Active Protocol: Document 09/05/24 14:38 LRN (Rec: 09/05/24 18:06 LRN [id number]) Trunk Strength Trunk Manual Muscle Testing Core Stabilization Loss of rotational stability with MMT of LE's. Hip Strength Hip Manual Muscle Testing Right Flexion (L2) 3+ Fair+ Extension (S1) 4+ Good+ Comments Strength is 5/5 except as indicated above. Left Flexion (L2) 3+ Fair+ Extension (S1) 4 Good External Rotation 4 Good Comments Strength is 5/5 except as indicated above. PT-OP-Q Treatments Start: 08/05/24 17:15 Freq: Status: Active Protocol: Document 11/14/24 13:49 LRN (Rec: 11/14/24 14:31 LRN [id number]) Therapeutic Exercises Supine Exercises Trunk Rotationi Side bilateral Reps/Minutes 10x 3 Comments Cued to exhale on rotation and pull in on ribs w/rot. Quick & Long Hold Kegels in isolation of abdoms Supine Exercise Name On Bolster: Quick & long hold kegels Equipment Used Ball squeeze & with TB BKFO Reps/Minutes 2 SH/2 SR x 10, 10 SH x 10 SR. Long Hold Kegels Reps/Minutes 10 SH/followed by rest x 2 Comments PF MMT & endurance taken Quick Kegels Reps/Minutes 1 SH/2 SR x10, rest btn sets Comments PF MMT taken Self-Care/Home Management Treatment Education Other Education Discussed results of progress assessment, goals, treatment, and plan of care (POC) with pt ; pt agreeable to assessment, goals, treatment, and POC. Activities Self-Care/Home Management Activities Pt instructed to seek further visits through referring physician and to request check for vaginal infection. PT-OP-R Modalities Start: 08/05/24 17:15 Freq: Status: Active Protocol: Document 10/31/24 11:38 LRN (Rec: 11/10/24 13:50 LRN [id number]) Electric Stimulation Electric Stimulation Pre-Modulated Body Location Pelvic Floor Intensity 18 Cycle 10/10 Patient Position Hooklying Comments Extra time needed for donning of electrode and determining max tolerated intensity for stim. Pt did not tolerate stim at intensity to achieve a PF contraction. Pt I/S to do PF contractions with stim on and relaxation of PF when stim is off. PT-OP-T Assessment and Plan Start: 08/05/24 17:15 Freq: Status: Active Protocol: Document 11/14/24 13:49 LRN (Rec: 11/14/24 14:31 LRN [id number]) Physical Therapy Assessment Rehab Potential Rehabilitation Potential Good Evaluation Complexity Number of Personal Factors/Comorbidities 3 or More Number of Body Systems Impaired 4 or More Clinical Presentation at Evaluation Evolving Impairments Impairments Activity Tolerance,Pain, Posture,ROM,Soft Tissue Mobility,Strength Goals Three Impairment Urinary leakage due to decr'd hip mobility (IR) & PF strength/endurance Short Term Goal (STG) Pt will be educated and show ability to remain continent in presence of a strong urge. 09/12/24: Pt educated in urge deference technique. 09/26/24 Pt reporting no leakage in presence of strong urge. STG Duration 10/20/24 (09/26/24: MET GOAL ) Care Home Goal (LTG) Pt will be urinary continent when stepping up onto a curve, and performing yoga (changing a leg position), or if a leg slips out to the side, and running. 11/08/24: Not leaking when stepping off a curve. Hasn't done any yoga yet. LTG Duration 02/10/25 progressing (need asses yoga, leg to side, run) Two Impairment Stress urinary incontinence with cough/sneeze. Short Term Goal (STG) Pt will be able to demonstrate postural and performance modification for coughing and postural modification with sneezing to eliminate urinary leakage. 11/08/24: Pt able to demonstrate in supine performance modification to cough/sneeze to decr core pressure and reduce or eliminate urinary leakage. STG Duration 12/30/24 progressed 11/08/24 (need sitting postural demonstration) Care Home Goal (LTG) Pt will not have urinary leakage with a cough or sneeze , 1 out of 8 times. 11/08/24: Not having to sneeze or cough yet. LTG Duration 02/10/25 One Impairment Pt lacks an independent self care HEP. Short Term Goal (STG) Pt will be educated and able to demonstrate transfers to lessen core abdominal pressure and educated in mgmt with exercise (running, yoga). 09/19/24: HEP handout: Deep breathing. 09/26/24: Pt educated in breathwork with transfers to lessen core pressure. 10/03/24: Issued & reviewed handout: Transfers with breath & Kegel. I/S pt in kegel with yoga and stress core pressure mgmt with breath during yoga. STG Duration 12/30/24 progressed 10/03/24 (educate in mgmt w/running) [employer] Goal (LTG) Pt will be independent in a self care HEP for PF strengthening, hip mobility ( IR) ROM, and trunk L>R rot to progress the pt towards remaining urinary continent. 09/12/24: HEP: Kegels (long, quick), aggrevators. 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 Pt has shown some improvement in her level of urinary continence. She is no longer leaking in the presence of a strong urge, and when stepping up on a curve. She has not returned to yoga or had onset of couging or sneezing (although she had reported once no leakage with cough or sneeze); therefore it is unknown her level of continence with yoga, coughing, and sneezing. Today, she demonstrates less L trunk rotation and strength than R. Passive hip IR mobility is notably decreased (IR: R 20, L 30; ER 75-80 rand ). The pt's progress has been slow as expected due to her surgical abdominal history and vaginal trauma. The pt will benefit from skilled physical therapy for PF and core strengthening, improving hip ROM and progression towards return to prior ex function of yoga, and [place] biking without urinary leakage , and education to progress towards running. Physical Therapy Plan Frequency and Duration Frequency of Treatment 1x/Week Duration of treatment (weeks) 12 Plan of Care Start Date 11/14/24 Plan of Care End Date 02/10/25 Therapeutic Interventions Therapeutic Interventions Home Exercise Program,Manual Therapy,Neuromuscular Re- education,Self-Care/Home Management,Soft Tissue Mobilization,Therapeutic Activities,Therapeutic Exercises Next Visit Focus/Plan Next Note Type Treatment Note Next Visit Plan Hold therapy until determined if pt insurance extension allowed for more visits or time extension for approved visits. If no further visits or time allowed DC per pt due to financial reasons. Next: Pain assessment. If FRANNY rehab cont'd, start progression towards return to ex (bike, yoga, run). Assess if pt evaluated for vaginal infection. If not assessed for vaginal infection, hold vemg neuro-kelly until cleared of possible vaginal infection (white chunks in vagina). Assess pt's core pressure management (no talking/singing ). Check hip IR/ER mobilty. Issue HEP: trunk L>R rot ex & PF strengthening as appropriate. Train sitting postural modification (anter PT) to reduce risk of leakage w/ modified cough or sneeze. Manual: STM of abdomen (and urachus) & bladder mobility. Ex: Isolated Kegel and kegels on wedge. Check leakage with yoga move and basic run education. Ther Ex: PF/core rot/hip ( flex, ext, ER) strengthening, monitor for improvement of hip IR ROM, and normalize trunk rot mobility, and core/PF stabilization for proper abdominal pressure system. Educate/training of pt in core pressure mgmt for jogging. Neuro-kelly/Strengthening: PF/ Abdom: strengthen in sup (sit - incr PF strength needed, stand - stability of PF hold needed). POC: Pt education, Manual therapy. Biofeedback with vaginal sensor for PF >< awareness and strengthening, Therapeutic Exercises, Therapeutic Activities, Neuromuscular Reeducation.
--- NOTE | 2024-11-28 18:36 | PT.OTN ---
Current Diagnoses Unspecified urinary incontinence (11/28/24) Physical Therapy Treatment Note PT-OP-A Visit Information Start: 08/05/24 17:15 Freq: Status: Active Protocol: Document 11/28/24 13:48 LRN (Rec: 11/28/24 14:33 LRN Laptop) Out-Patient Physical Therapy Visit Information Visit Information Visit Type Treatment Note Visit Start Time 13:49 Visit Stop Time 14:31 Visit Number Evaluation Information Evaluation Date 09/05/24 Precautions Precautions G2,P3, T2 ( with twins, vaginal births, one still born, the other later). She reports her one living daughter was born via . 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 History of Current Condition 2019 had w/DA of 11 lbs. Prolapse bladder started for the first time in 2022. Was also overweight and had gastroc bypass in 09/2023. States 3 months later in December , she had a severe prolapse and she manually would push it back in and everything would be fine. She admits at that time she had constipation. States prolapse has happened 2 -3 times previously, but last December was severe because she could feel more falling out/ coming down, stopping at the opening of vaginal canal. States she has been doing Kegels. With an urge she has a couple of minutes to urinate before she is not able to hold her urine. Sometimes leaks with cough or sneeze, crossing legs helps not to leak. Home ex's: [place] bike , free wgts & yoga mats, and walks/hikes. Leaks with lifting something over 20-30# (DA is 7 yo - 50#). Prior Treatments and Tests None. Treatment Goals Patient/Caregiver Goals Pt goals: -To resolve urinary incontinence with stepping up onto a curve, one leg slipping out to side, and running, yoga changing a leg position (leaks underwear, not outerwear). -Not leak with cough or sneeze . 1 out of 8 times. -Have a HEP to be able to resolve the problem. Personal Factors Other Personal Factors That May Effect LBP rated 3-4/10. Inguinal Therapy/Recovery pain occasionally, rand sides at different times. G2,P3, T2 ( with twins, vaginal births, one still born , the other later) . She reports her one living daughter was born via C- section. 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 PT-OP-C Subjective Start: 08/05/24 17:15 Freq: Status: Active Protocol: Document 11/28/24 13:48 LRN (Rec: 11/28/24 14:33 LRN Laptop) OP-PT Subjective Patient Comments Patient Comments No pain. Had start of UTI; therefore leaking moments, but now clear and no leakage. No symptoms of UTI and tested negative for UTI. PT-OP-I Pelvic Floor Start: 08/05/24 17:15 Freq: Status: Active Protocol: Document 11/28/24 13:48 LRN (Rec: 11/28/24 14:33 LRN Laptop) Pelvic Floor Assessment Comments Pelvic Floor Comments Quick Contractions: PF 5.3uV max, Abdom 0.8 uV Long Hold avg: PF 1.3 uV, Abdom 1.2 uV PT-OP-J Posture/Palpation/Skin Start: 08/05/24 17:15 Freq: Status: Active Protocol: Document 09/05/24 14:38 LRN (Rec: 09/05/24 18:06 LRN [id number]) Posture Evaluation Position Standing Pelvis Posture Anteriorly Tilted Ankle/Foot Posture (R) Calcaneal Inversion Comments Posture Comments Flattened upper thoracic spine . Sacrum L rotated (fwd at R at Sacral sulcus and YESENIA). PT-OP-K Range of Motion Start: 08/05/24 17:15 Freq: Status: Active Protocol: Document 11/28/24 13:48 LRN (Rec: 11/28/24 14:33 LRN Laptop) Hip Goniometric Range of Motion Hip Right Passive Testing Position Supine Internal Rotation 10 External Rotation 85 Left Passive Testing Position Supine Internal Rotation 15 External Rotation 70 PT-OP-M Strength Start: 08/05/24 17:15 Freq: Status: Active Protocol: Document 09/05/24 14:38 LRN (Rec: 09/05/24 18:06 LRN [id number]) Trunk Strength Trunk Manual Muscle Testing Core Stabilization Loss of rotational stability with MMT of LE's. Hip Strength Hip Manual Muscle Testing Right Flexion (L2) 3+ Fair+ Extension (S1) 4+ Good+ Comments Strength is 5/5 except as indicated above. Left Flexion (L2) 3+ Fair+ Extension (S1) 4 Good External Rotation 4 Good Comments Strength is 5/5 except as indicated above. PT-OP-Q Treatments Start: 08/05/24 17:15 Freq: Status: Active Protocol: Document 11/28/24 13:48 LRN (Rec: 11/28/24 14:33 LRN Laptop) Cardio Equipment Bicycle (Upright) Duration (Minutes) 3 Resistance 4 Seat Position 7 Other Extra time needed for equip setup. Cued for breath & PF on (w/exhale). Therapeutic Exercises Supine Exercises Lateral Hip Stretch Supine Exercise Name I/S pt to do home 2x/day. Side bilateral Reps/Minutes 60 SH x 1 each Comments Extra time to determine max mandy stretch, hip ER/IR ROM taken. Piriformis stretch Supine Exercise Name ankle over knee > KTC (I/S pt to do 2x/day) Side bilateral Reps/Minutes 60 SH x 2 each Comments Extra time to determine best position and mandy for stretch Quick & Long Hold Kegels in isolation of abdoms Reps/Minutes 17' Deep Breathing Reps/Minutes 8' Comments Cued to place hand on belly and on chest for abdominal breathing Sitting Exercises Side sitting Piriformis stretch Sitting Exercise Name Both legs flexed and just one leg flexed. Side bilateral Reps/Minutes 60 SH x 1 each Comments Extra time needed to position into tolerable position ea side PT-OP-R Modalities Start: 08/05/24 17:15 Freq: Status: Active Protocol: Document 10/31/24 11:38 LRN (Rec: 11/10/24 13:50 LRN [id number]) Electric Stimulation Electric Stimulation Pre-Modulated Body Location Pelvic Floor Intensity 18 Cycle 10/10 Patient Position Hooklying Comments Extra time needed for donning of electrode and determining max tolerated intensity for stim. Pt did not tolerate stim at intensity to achieve a PF contraction. Pt I/S to do PF contractions with stim on and relaxation of PF when stim is off. PT-OP-T Assessment and Plan Start: 08/05/24 17:15 Freq: Status: Active Protocol: Document 11/28/24 13:48 LRN (Rec: 11/28/24 14:33 LRN Laptop) Physical Therapy Assessment Goals Three Impairment Urinary leakage due to decr'd hip mobility (IR) & PF strength/endurance Short Term Goal (STG) Pt will be educated and show ability to remain continent in presence of a strong urge. 09/12/24: Pt educated in urge deference technique. 09/26/24 Pt reporting no leakage in presence of strong urge. STG Duration 10/20/24 (09/26/24: MET GOAL ) Gunnery/Ordnance Officer Goal (LTG) Pt will be urinary continent when stepping up onto a curve, and performing yoga (changing a leg position), or if a leg slips out to the side, and running. 11/08/24: Not leaking when stepping off a curve. Hasn't done any yoga yet. LTG Duration 02/10/25 progressing (need asses yoga, leg to side, run) Two Impairment Stress urinary incontinence with cough/sneeze. Short Term Goal (STG) Pt will be able to demonstrate postural and performance modification for coughing and postural modification with sneezing to eliminate urinary leakage. 11/08/24: Pt able to demonstrate in supine performance modification to cough/sneeze to decr core pressure and reduce or eliminate urinary leakage. STG Duration 12/30/24 progressed 11/08/24 (need sitting postural demonstration) Correction Goal (LTG) Pt will not have urinary leakage with a cough or sneeze , 1 out of 8 times. 11/08/24: Not having to sneeze or cough yet. LTG Duration 02/10/25 One Impairment Pt lacks an independent self care HEP. Short Term Goal (STG) Pt will be educated and able to demonstrate transfers to lessen core abdominal pressure and educated in mgmt with exercise (running, yoga). 09/19/24: HEP handout: Deep breathing. 09/26/24: Pt educated in breathwork with transfers to lessen core pressure. 10/03/24: Issued & reviewed handout: Transfers with breath & Kegel. I/S pt in kegel with yoga and stress core pressure mgmt with breath during yoga. STG Duration 12/30/24 progressed 10/03/24 (educate in mgmt w/running) Gunnery/Ordnance Officer Goal (LTG) Pt will be independent in a self care HEP for PF strengthening, hip mobility ( IR) ROM, and trunk L>R rot to progress the pt towards remaining urinary continent. 09/12/24: HEP: Kegels (long, quick), aggrevators. 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 Pt visits approved with waiver; therefore cont PT. Pt reporting no symptoms of UTI and tested negative for UTI. Piriformis stretch not felt well with one leg on table stretch, better with both legs on table. Pt hip IR mobility is very restricted. In supine, PF strength is very weak compared to abdominal tone; therefore UI leakage expected in standing or sitting, more PF strengthening needed. Physical Therapy Plan Frequency and Duration Frequency of Treatment 1x/Week Duration of treatment (weeks) 12 Plan of Care Start Date 11/14/24 Plan of Care End Date 02/10/25 Next Visit Focus/Plan Next Note Type Treatment Note Next Visit Plan Next: Pain assessment. FRANNY rehab, slowly progress towards return to ex (bike, yoga, run). Check PF strength & for white chunks in vagina. Review hip IR mobility stretches. recheck Deep breathing. Assess pt's core pressure management (no talking/singing ). Issue HEP: trunk L>R rot ex & PF strengthening as appropriate. Train sitting postural modification (anter PT) to reduce risk of leakage w/ modified cough or sneeze. Manual: STM of abdomen (and urachus) & bladder mobility. Ex: Isolated Kegel and kegels on wedge. Check leakage with yoga move and basic run education. Ther Ex: PF/core rot/hip ( flex, ext, ER) strengthening, monitor for improvement of hip IR ROM, and normalize trunk rot mobility, and core/PF stabilization for proper abdominal pressure system. Educate/training of pt in core pressure mgmt for jogging. Neuro-kelly/Strengthening: PF/ Abdom: strengthen in sup (sit - incr PF strength needed, stand - stability of PF hold needed). POC: Pt education, Manual therapy. Biofeedback with vaginal sensor for PF >< awareness and strengthening, Therapeutic Exercises, Therapeutic Activities, Neuromuscular Reeducation.
--- NOTE | 2025-02-16 15:30 | PT-OP ANOTE ---
Mscong left by phone notifying pt of her discharge from physical therapy due to her being past her Plan of Care. I/S pt if she needs to return to therapy that she will need a new referral.
--- NOTE | 2025-02-16 15:43 | PT.OPDS ---
Current Diagnoses Unspecified urinary incontinence (11/28/24) Visit Care Team Role Provider Type Kristen Guerrero MD Attending Provider Non-Staff Family Provider Primary Care Provider Referring Provider Specialty: Medical Address: [address] [place] [address], [id number] Email: Visit Number Visit Number Discharge Summary PT-OP-B Current Condition Start: 08/05/24 17:15 Freq: Status: Active Protocol: Document 09/05/24 14:38 LRN (Rec: 09/05/24 18:06 LRN [id number]) Current Condition History of Current Condition Onset Date 2018 Current Complaints Urinary leakage with fear of prolapse. History of Current 2018 had w/DA of 11 lbs. Prolapse Condition bladder started for the first time in 2022. Was also overweight and had gastroc bypass in 09/2023. States 3 months later in December, she had a severe prolapse and she manually would push it back in and everything would be fine. She admits at that time she had constipation. States prolapse has happened 2-3 times previously, but last December was severe because she could feel more falling out/coming down, stopping at the opening of vaginal canal. States she has been doing Kegels. With an urge she has a couple of minutes to urinate before she is not able to hold her urine. Sometimes leaks with cough or sneeze, crossing legs helps not to leak. Home ex's: [place] bike, free wgts & yoga mats, and walks/hikes. Leaks with lifting something over 20-30# (DA is 7 yo - 50#). Prior Treatments and None. Tests Treatment Goals Patient/Caregiver Pt goals: Goals -To resolve urinary incontinence with stepping up onto a curve, one leg slipping out to side, and running, yoga changing a leg position (leaks underwear, not outerwear). -Not leak with cough or sneeze. 1 out of 8 times. -Have a HEP to be able to resolve the problem. Personal Factors Other Personal LBP rated 3-4/10. Inguinal pain occasionally, rand Factors That May sides at different times. G2,P3, T2 ( with Effect Therapy/ twins, vaginal births, one still born, the other passed Recovery away later). She reports her one living daughter was born via . Gastroc bypass - 09/24/2023, Endometrial ablasion - 06/2022, L thyroidectomy - 2017, Uterine polypectomies - 2014. PT-OP-C Subjective Start: 08/05/24 17:15 Freq: Status: Active Protocol: Document 11/28/24 13:48 LRN (Rec: 11/28/24 14:33 LRN Laptop) OP-PT Subjective Patient Comments Patient Comments No pain. Had start of UTI; therefore leaking moments, but now clear and no leakage. No symptoms of UTI and tested negative for UTI. PT-OP-I Pelvic Floor Start: 08/05/24 17:15 Freq: Status: Active Protocol: Document 11/28/24 13:48 LRN (Rec: 11/28/24 14:33 LRN Laptop) Pelvic Floor Assessment Comments Pelvic Floor Quick Contractions: PF 5.3uV max, Abdom 0.8 uV Comments Long Hold avg: PF 1.3 uV, Abdom 1.2 uV PT-OP-J Posture/Palpation/Skin Start: 08/05/24 17:15 Freq: Status: Active Protocol: Document 09/05/24 14:38 LRN (Rec: 09/05/24 18:06 LRN [id number]) Posture Evaluation Position Standing Pelvis Posture Anteriorly Tilted Ankle/Foot Posture (R) Calcaneal Inversion Comments Posture Comments Flattened upper thoracic spine. Sacrum L rotated (fwd at R at Sacral sulcus and YESENIA). PT-OP-K Range of Motion Start: 08/05/24 17:15 Freq: Status: Active Protocol: Document 11/28/24 13:48 LRN (Rec: 11/28/24 14:33 LRN Laptop) Hip Goniometric Range of Motion Hip Right Passive Testing Position Supine Internal Rotation 10 External Rotation 85 Left Passive Testing Position Supine Internal Rotation 15 External Rotation 70 PT-OP-M Strength Start: 08/05/24 17:15 Freq: Status: Active Protocol: Document 09/05/24 14:38 LRN (Rec: 09/05/24 18:06 LRN [id number]) Trunk Strength Trunk Manual Muscle Testing Core Stabilization Loss of rotational stability with MMT of LE's. Hip Strength Hip Manual Muscle Testing Right Flexion (L2) 3+ Fair+ Extension (S1) 4+ Good+ Comments Strength is 5/5 except as indicated above. Left Flexion (L2) 3+ Fair+ Extension (S1) 4 Good External Rotation 4 Good Comments Strength is 5/5 except as indicated above. PT-OP-T Assessment and Plan Start: 08/05/24 17:15 Freq: Status: Active Protocol: Document 02/16/25 15:28 LRN (Rec: 02/16/25 15:42 LRN Laptop) Physical Therapy Assessment Goals Three Impairment Urinary leakage due to decr'd hip mobility (IR) & PF strength/endurance Short Term Goal (STG Pt will be educated and show ability to remain ) continent in presence of a strong urge. 09/12/24: Pt educated in urge deference technique. 09/26/24 Pt reporting no leakage in presence of strong urge. STG Duration 10/20/24 (09/26/24: MET GOAL) Fdc Goal (LTG) Pt will be urinary continent when stepping up onto a curve, and performing yoga (changing a leg position), or if a leg slips out to the side, and running. 11/08/24: Not leaking when stepping off a curve. Hasn' t done any yoga yet. LTG Duration 02/10/25 progressing 11/08/24 (02/16/25: NOT MET GOAL) Two Impairment Stress urinary incontinence with cough/sneeze. Short Term Goal (STG Pt will be able to demonstrate postural and performance ) modification for coughing and postural modification with sneezing to eliminate urinary leakage. 11/08/24: Pt able to demonstrate in supine performance modification to cough/sneeze to decr core pressure and reduce or eliminate urinary leakage. STG Duration 12/30/24 progressed 11/08/24 (02/16/25: NOT MET GOAL) Checker Loader Goal (LTG) Pt will not have urinary leakage with a cough or sneeze , 1 out of 8 times. 11/08/24: Not having to sneeze or cough yet. LTG Duration 02/10/25 (02/16/25: NOT MET GOAL, pt unavailable for final assessment) One Impairment Pt lacks an independent self care HEP. Short Term Goal (STG Pt will be educated and able to demonstrate transfers ) to lessen core abdominal pressure and educated in mgmt with exercise (running, yoga). 09/19/24: HEP handout: Deep breathing. 09/26/24: Pt educated in breathwork with transfers to lessen core pressure. 10/03/24: Issued & reviewed handout: Transfers with breath & Kegel. I/S pt in kegel with yoga and stress core pressure mgmt with breath during yoga. STG Duration 12/30/24 progressed 10/03/24 (02/16/25: NOT MET GOAL ) Checker Loader Goal (LTG) Pt will be independent in a self care HEP for PF strengthening, hip mobility (IR) ROM, and trunk L>R rot to progress the pt towards remaining urinary continent . 09/12/24: HEP: Kegels (long, quick), aggrevators. LTG Duration 02/10/25 progressed 09/12/24 (02/16/25: NOT MET GOAL) Assessment Summary Assessment Pt is a 44 yo female w/FRANNY post- 2019, severe prolapse (2022), rand inguinal pain, dec'd hip mob (IR), hx of LBP & lower abdominal surgical hx. In supine, PF strength is very weak compared to abdominal tone; therefore UI leakage was expected in standing or sitting, indicating more PF strengthening is needed. The pt was approved for more visits with a waiver, but she did not return for further visits. Pt was last seen 11/28/24, she did not meet most of her goals. The pt is being discharged today to her previously issued HEP. Physical therapy in the future would be appropriate if urinary leakage persists. Physical Therapy Plan Discharge Physical Therapy Discharge Reasons No Longer Attending PT Discharge Comments Thank you for your referral.
== END 2025-02-20 10:25 | disposition home or self-care (01) ==
LOC: PHYS 13:45
PROVIDERS: Family Provider Student in an Organized Health Care Education/Training Program; PCP Student in an Organized Health Care Education/Training Program; Referring Provider Student in an Organized Health Care Education/Training Program; Visit Provider Student in an Organized Health Care Education/Training Program
DX: R32 Unspecified urinary incontinence (principal)
CPT/HCPCS: 97014; 97110; 97112; 97162; 97530; 97535; G0283